=== PATIENT | female | born 1995 | race Hispanic/Latino ===

== ENCOUNTER 2021-07-28 14:09 | Emergency (ER) | payer OTHER, SELFPAY ==
--- OUTSIDE RECORDS SUMMARY | 2021-07-28 14:13 | XMS REPORT | Continuity of Care Document ---
:1995 Author Organization [facility] t Address [address] [place] [address] Care Team Providers Name Role Phone Pcp, Does Not Have A Primary Care Physician Janene Pichardo Attending Clinician Unavailable Reggie MCELROY Attending Clinician Unavailable Doctor Unassigned, Name Attending Clinician Unavailable Reggie Barone Attending Clinician Unavailable Reggie Rivas Attending Clinician Rai Rothman Attending Clinician RAI POPE Attending Clinician Unavailable Janene Henderson Attending Clinician Unavailable Physician, Primary or Family Admitting Clinician Unavailabl e Payers Payer Name Policy Type Policy Number Effective Date Expiration Date S ource Problems Condition Condition Condition Status Onset Resolution Last Treating Co mments Source Name Details Category Date Date Treatment Clinician Date Menstrual Menstrual Disease Active Uni vers problem problem 03-26 ity of 00:00: [place] [id number] Medical Branch BMI BMI Disease Active Univers 34.0-34.9, 34.0-34.9, 03-26 it y of adult adult 00:00: [address] Allergies, Adverse Reactions, Alerts Allergy Allergy Status Severity Reaction(s) Onset Inactive Treating Comm ents Source Name Type Date Date Clinician No Known DA Active U [facility] Allergie 3-27 Corp[facility] s 00:00: [facility] No Known DA Active U [facility] Allergie 2-13 Corp[facility] s 00:00: Regina [facility] No Known DA Active U 2012-07 [facility] Allergie 0-10 Corpus s 00:00: [address] NO KNOWN Drug Active Univers ALLERGIE Class ity of S [facility] Social History Social Habit Start Date Stop Date Quantity Comments Source Exposure to Not sure [facility] SARS-CoV-2 [place] [facility] (event) [facility] History SDOH University o f Alcohol Frequency [place] [facility] History SDOH University o f Alcohol Std [place] [facility] Drinks [facility] History SDOH University o f Alcohol Binge [place] [facility] Tobacco use and 2021-03-26 2021-03-26 Never used Universit y of exposure 00:00:00 00:00:00 [facility] Alcohol intake 2021-03-26 2021-03-26 Current drinker Unive rsity of 00:00:00 00:00:00 of alcohol [place] [facility] (finding) [facility] Alcohol Comment 2021-03-26 2021-03-26 social Universit y of 00:00:00 00:00:00 [facility] Sex Ass[birth year] Universit y of 00:00:00 00:00:00 [facility] Smoking Status Start Date Stop Date Source Unknown if ever smoked Universit y of [facility] Never smoker [facility] Medications Ordered Filled Start Stop Current Ordering Indication Dosage Frequency Signature Comments Components Source Medication Medication Date Date Medication? Clinician (SIG) Name Name BIOTIN ORAL Yes Take by Un carla 902 mouth. ity of 13:40: [address] BIOTIN ORAL Yes Take by Un carla 9- mouth. ity of 13:40: [address] BIOTIN ORAL Yes Take by Un carla 9-02 mouth. ity of 13:40: [address] BIOTIN ORAL Yes Take by Un crala 9-02 mouth. ity of 13:40: [place] [facility] BIOTIN ORAL Yes Take by Nikunj aguirre 03-26 mouth. ity of 08:40: [place] [facility] Immunizations Ordered Filled Immunization Date Status Comments [facility] e Immunization Name Name SARS-COV-2 COVID-19 2020-12-17 Completed Unive rsity of MODERNA VACCINE 00:00:00 [facility] SARS-COV-2 COVID-19 2020-12-17 Completed Unive rsity of MODERNA VACCINE 00:00:00 [facility] SARS-COV-2 COVID-19 2020-12-17 Completed Unive rsity of MODERNA VACCINE 00:00:00 [facility] SARS-COV-2 COVID-19 2020-12-17 Completed Unive rsity of MODERNA VACCINE 00:00:00 [facility] [place] [facility] SARS-COV-2 COVID-19 2020-12-17 Completed Unive rsity of MODERNA VACCINE 00:00:00 [facility] SARS-COV-2 COVID-19 2020-11-19 Completed Unive rsity of MODERNA VACCINE 00:00:00 [facility] SARS-COV-2 COVID-19 2020-11-19 Completed Unive rsity of MODERNA VACCINE 00:00:00 [facility] SARS-COV-2 COVID-19 2020-11-19 Completed Unive rsity of MODERNA VACCINE 00:00:00 [facility] SARS-COV-2 COVID-19 2020-11-19 Completed Unive rsity of MODERNA VACCINE 00:00:00 [facility] SARS-COV-2 COVID-19 2020-11-19 Completed Unive rsity of MODERNA VACCINE 00:00:00 [facility] Vital Signs Vital Name Observation Time Observation Value Comments Source Systolic blood 2021-03-26 13:33:00 116 mm[Hg] Univer sity of pressure [facility] Diastolic blood 2021-03-26 13:33:00 83 mm[Hg] Unive rsity of pressure [facility] Heart rate 2021-03-26 13:33:00 75 /min [facility] Body temperature 2021-03-26 13:33:00 36.33 Nidia Univ ersity of [facility] Respiratory rate 2021-03-26 13:33:00 18 /min [facility] ersity of [place] [facility] [place] Body height 2021-03-26 13:33:00 160 cm [facility] ty [facility] [place] [facility] [place] Body weight 2021-03-26 13:33:00 89.132 kg Universi ty of [place] [facility] BMI 2021-03-26 13:33:00 34.81 kg/m2 Universi ty of [facility] Systolic blood 2021-02-26 06:00:00 116 mm[Hg] Univer sity of pressure [facility] Diastolic blood 2021-02-26 06:00:00 80 mm[Hg] [facility] Heart rate 2021-02-26 06:00:00 78 /min Universi ty of [facility] Respiratory rate 2021-02-26 06:00:00 19 /min [facility] Oxygen saturation in 2021-02-26 06:00:00 99 /min [facility] Arterial blood by [facility] Pulse oximetry Branch Body temperature 2021-02-26 04:36:00 36.78 Nidia [facility] height 2021-02-26 04:36:00 160 cm [facility]i [facility] [place] [facility] [place] Body weight 2021-02-26 04:36:00 81.647 kg Universi ty [facility] BMI 2021-02-26 04:36:00 31.89 kg/m2 [facility] Procedures Procedure Date / Time Performed Performing Clinician Sour e EXTERNAL PROVIDER 2021-04-20 05:01:00 Doctor Unassigned, No [facility] RECORDS Name Medical Branch CONSENT/REFUSAL FOR 2021-03-26 13:05:17 Doctor Unassigned, No [facility] DIAGNOSIS AND Name Medical Branch TREATMENT ASSIGNMENT OF BENEFITS 2021-03-26 13:05:02 Doctor Unassigned, No [facility] Name Medical Branch MAGNESIUM 2021-02-26 04:40:00 Ellen Pope [facility] COMP. METABOLIC PANEL 2021-02-26 04:40:00 Ellen Pope [facility] ([id number]) Medical Branch CBC WITH DIFF 2021-02-26 04:40:00 Ellen Pope [facility] [facility] URINALYSIS 2021-02-26 04:40:00 Ellen Pope [place] [facility] POCT TEST 2021-02-26 04:39:00 Ellen Pope [facility] CONSENT/REFUSAL FOR 2021-02-26 04:18:31 [facility]igned, [facility] AND Name Medical Branch TREATMENT NOTICE OF PRIVACY 2021-02-26 04:17:53 Doctor Unassigned, No [facility] Name Medical Branch Encounters Start End Encounter Admission Attending Care Care Encounter Source Date/Time Date/Time Type Type Clinicians Facility Department ID 2021-04-13 Inpatient [facility] ER [id number] [facility] 08:30:00 [id number] [facility] 2020-10-18 Inpatient [facility] ER [id number] [facility] 16:34:00 [id number] [facility] 2020-09-06 Inpatient [facility] ER [id number] [facility] 09:41:00 [id number] [facility] 2020-06-06 Inpatient [facility] ER [id number] [facility] 09:17:00 [id number] [facility] 2020-04-01 Inpatient [facility] ER [id number] [facility] 18:30:00 [id number] [facility] 2020-01-25 Inpatient [facility] ER [id number] [facility] 10:11:00 [id number] [facility] 2019-12-13 [facility] [id number] 11:49:00 [id number] [facility] 2021-06-01 2021-06-01 Emergency EM Kotlik, [facility] ER [id number] [facility] 04:19:00 07:25:00 Shyann [id number] Corp[facility] 2021-06-01 2021-06-01 Emergency EM Kotlik, [facility] [id number] [facility] 04:19:00 07:25:00 Shyann 98 Carrieu [facility] 2021-05-26 2021-05-26 Outpatient Ibis [facility]Y [facility] [id number] Univers 13:30:00 13:30:00 WALESKA gonzalez [facility] 2021-05-26 2021-05-26 Outpatient Ibis [facility] [id number] Univers 13:30:00 13:30:00 WALESKA [id number] ity of [facility] 2021-04-20 2021-04-20 Orders Doctor JAMIE [id number] Univers 00:00:00 00:00:00 Only Unassigned, MANDA [id number] ity of [place] [facility] [id number] Sher as [id number] [address] 2021-04-13 2021-04-13 Emergency EM Lizabeth [facility] ER [id number] [facility] 08:30:00 11:03:00 , Jessika 06 [facility] 2021-03-26 2021-03-26 [facility] [id number] Univers 08:07:37 09:06:11 Visit Waleska Paredes CRESTER [id number] it y of [facility] [id number] Sher as MATERNAL [id number] Med ical & CHILD [address] [place] [address] 2021-03-26 2021-03-[address] [facility] [id number] Univers 08:00:00 08:00:00 WALESKA gonzalez [facility] 2021-03-26 2021-03-26 Orders Doctor JAMIE [id number] Univers 00:00:00 00:00:00 Only Unassigned, MNADA [id number] ity of [place] [facility] [id number] Sher as [phone] [facility] 009 [place] 2021-02-25 2021-02-26 Emergency Ellen Pope [facility] [id number] Univers 23:32:00 01:16:00 [facility] [id number] i ty [facility] 4.2.7.2.[place] [id number] [facility] 084 [place] 2021-02-25 2021-02-25 Emergency X Ellen POPE [facility] ERT [id number] Univers 23:32:00 23:32:00 ity of [facility] 2021-02-03 2021-02-03 Emergency EM Santiago [facility] ER [id number] [facility] 12:47:00 15:19:00 Trisha [id number] [facility] Results Test Description Test Time Test Comments Results Result Comments Source COVID 19 INHOUSE AG 2021-06-01 06:18:00 Test Item Value Reference Range Interpretation Comme nts COVID 19 INHOUSE AG (test NEGATIVE Negative " The Kay SARS Antigen TACO does not code = [id number]) differen tiate betweenSARS-CoV and SARS-CoV-2 " e Kay SARS Antigen TACO employs immunof luorescencetechnology in a sandwich nidia gn that is used with Kay todetect nucleocapsid protein from SARS-CoV and SA RS-CoV-2.This test allows for the detecti on of SARS-CoV [id number]. The test detects, but does not differ entiate,between the two viruses. " Resu lts are for the identification of OMDJ-PrJ-3oeeftmtjzvyo protein antigen . Antigen is generallydetect able in upper respiratory specimens durin g the acutephase of infection. Posi tive results indicate the presenceof zandra l antigens, but clinical correlation wit h patienthistory and other diagnosti c information is necessary todet ermine infection status. Positive result s do not rule outbacterial in fection or co-infection with other viru ses. Theagent detected may not be the definite cause of disease. " Nega tive results should be treated as pres umptive " This test has not been FDA cl eared or approved; the testhas been au thorized by FDA under an Emergency UseAu thorization (EUA) for use by laboratories certified undert CLIA that meet the r equirements to perform moderate,high o r waived complexity tests. This janeth t is authorized foruse at the Point of Ca re (POC), i.e., in patient careset tings operating under a CLIA Certificat e of Waiver,Certificate of Compliance, or Certificate of Accreditation Use [employer] NOW test: YES- US TRANSVAGINAL NON [id number] 09:44:00 [facility] : 1995 Sex: F Patient Name: LUCIAN FATIMA Unit No: [id number] EXAMS: CPT CODE: [id number] [place] [address] Site ID: [id number] Transvaginal and transabdominal pelvic US: CLINICAL HISTORY: Vaginal bleeding, left lower quadrant pain TECHNIQUE: Transabdominal and transvaginal pelvic ultrasound performed, with duplex scanning performed using B mode/grayscale imaging and spectral Doppler evaluation of arterial inflow and venous outflow to the ovaries FINDINGS: The uterus is normal in sizeand appearance and measures 7.3 x 3.7 x 4.4 cm. The endometrial stripe measures 14 mm. Myometrium appears homogeneous. The right ovary measures 2.5 x 2.2 cm. The left ovary measures 2.1 x 1.9 cm. Normal doppler flow to both ovaries is seen, without torsion. No abnormal adnexal masses are seen. No free fluid is seen. IMPRESSION: Unremarkable pelvic ultrasound at 0944 Reported and signed by: Van Freeman MD CC: Jessika Barone MD Technologist: [id number]; S erica Patel Trnscrbd D/ (0944) [email or web address] Orig Print D/T: S: 04/13/2021 (1001) Probe: [id number] [facility] Doctors NAME: LUCIAN FATIMA [address] PHYS: [place] [address] : 1995 AGE: 25 SEX: F LOC: MAIRA PHONE #: [phone] EXAM DATE: 04/13/2021 STATUS: REG ER FAX #: RAD NO: Page 1 Signed Report- US PELVIC [id number] 09:44:00 [facility] : 1995 Sex: F Patient Name: LUCIAN FATIMA Unit No: [id number] EXAMS: CPT CODE: [id number] US PELVIC COMPLETE 22812 Site ID: [id number] Transvaginal and transabdominal pelvic US: CLINICAL HISTORY: Vaginal bleeding, left lower quadrant pain TECHNIQUE: Transabdominal and transvaginal pelvic ultrasound performed, with duplex scanning performed using B mode/grayscale imaging and spectral Doppler evaluation of arterial inflow and venous outflow to the ovaries FINDINGS: The uterus is normal in sizeand appearance and measures 7.3 x 3.7 x 4.4 cm. The endometrial stripe measures 14 mm. Myometrium appears homogeneous. The right ovary measures 2.5 x 2.2 cm. The left ovary measures 2.1 x 1.9 cm. Normal doppler flow to both ovaries is seen, without torsion. No abnormal adnexal masses are seen. No free fluid is seen. IMPRESSION: Unremarkable pelvic ultrasound at 0944 Reported and signed by: Van Freeman MD CC: Jessika Barone MD Technologist: Liliane Patel Trnscrbd D/ (0944) [email or web address] Orig Print D/T: S: 04/13/2021 (1001) Probe: [facility] Doctors NAME: LUCIAN FATIMA [address] PHYS: SU.04 - Geovanyollie,Jessika N [facility] [place] [address] : 1995 AGE: 25 SEX: F LOC: MAIRA PHONE #: [phone] EXAM DATE: 04/13/2021 STATUS: REG ER FAX #: RAD NO: Page 1 Signed ReportHCG SERUM [id number] 09:21:00 Test Item Value Reference Range Interpretation Comments HCG SERUM QUAL NEGATIVE NEGATIVE False negativ es may occur (test code = when levels of hCGare below HCGQL) 10 mIU/ml. When is still suspec umagn, a new specimenshould be obtained after 48 hours and re-tested.If wa iting 48 hours is not me dically advisable,the t est result should be confi rmed using aquantitative h CG assay. COMPREHENSIVE METABOLIC [id number] 09:19:00 Test Item Value Reference Range Interpretation Comments SODIUM (test code = 138 MMOL/L 133-145 N NA) POTASSIUM (test code = 4.0 MMOL/L 3.6-5.2 N K) CHLORIDE (test code = 104 MMOL/L 100-108 N CL) CARBON DIOXIDE (test 29 MMOL/L 22-32 N code = CO2) GLUCOSE (test code = 100 MG/DL 65-99 H Results of this GLU) assay method ma y be falsely depress ed orelevated if patient is taki ng sulfasalazine. BLOOD UREA NITROGEN 12 MG/DL 6-20 N (test code = BUN) GLOMERULAR FILTRATION 92 71-165 N Report ing units: RATE (test code = GFR) mL/mi n/1.73m\\S\\2 (Modified MDRD Formula) CREATININE (test code 0.77 MG/DL 0.60-1.00 N = CREAT) TOTAL PROTEIN (test 6.9 G/DL 6.4-8.2 N code = PROT) ALBUMIN (test code = 3.6 G/DL 3.4-5.0 N ALB) GLOBULIN (test code = 3.3 G/DL 1.5-3.8 N GLOB) ALBUMIN/GLOBULIN RATIO 1.1 1.1-2.2 N (test code = A/G) CALCIUM (test code = 8.7 MG/DL 8.7-10.5 N CA) BILIRUBIN TOTAL (test 0.3 MG/DL 0.0-1.0 N code = BILT) SGOT/AST (test code = 41 Units/L 15-37 H Result s of this AST) assay method ma y be falsely depress ed orelevated if patient is taki ng sulfasalazine. SGPT/ALT (test code = 87 Units/L 30-65 H Result s of this ALT) assay method ma y be falsely depress ed orelevated if patient is taki ng sulfasalazine. ALKALINE PHOSPHATASE 100 Units/L 50-136 N TOTAL (test code = ALKP) CBC W/AUTO [id number] 09:07:00 Test Item Value Reference Range Interpretation Comments WHITE BLOOD CELL (test code = 6.89 x10 3/uL 4.80-10.80 N WBC) RED BLOOD CELL (test code = 3.98 x10 6/uL 4.2-5.4 L RBC) HEMOGLOBIN (test code = HGB) 11.5 G/DL 12.0-16.0 L HEMATOCRIT (test code = HCT) 34.7 % 37-47 L MEAN CELL VOLUME (test code = 87.2 FL 81-99 N MCV) MEAN CELL HGB (test code = MCH) 28.9 PG 27-31 N MEAN CELL HGB CONCENTRATION 33.1 G/DL 33-37 N (test code = MCHC) RED CELL DISTRIBUTION WIDTH 12.6 % 11.5-14.5 N (test code = RDW) PLATELET COUNT (test code = 315 x10 3/uL 150-450 N PLT) MEAN PLATELET VOLUME (test code 10.6 FL 7.4-10.4 H = MPV) NEUTROPHIL % (test code = NT%) 50.6 % 42-86 N IMMATURE GRANULOCYTE % (test 0.4 % 0.0-2.0 N code = IG%) LYMPHOCYTE % (test code = LY%) 40.5 % 24-44 N MONOCYTE % (test code = MO%) 6.4 % 0.0-4.0 H EOSINOPHIL % (test code = EO%) 1.7 % 0.0-2.7 N BASOPHIL % (test code = BA%) 0.4 % 0.0-0.5 N NUCLEATED RBC % (test code = 0.0 % 0.0-0.0 N NRBC%) NEUTROPHIL # (test code = NT#) 3.48 x10 3/uL 1.8-7.7 N IMMATURE GRANULOCYTE # (test 0.03 x10 3/uL 0.00-0.03 N code = IG#) LYMPHOCYTE # (test code = LY#) 2.79 x10 3/uL 1.0-4.8 N MONOCYTE # (test code = MO#) 0.44 x10 3/uL 0.0-0.8 N EOSINOPHIL # (test code = EO#) 0.12 x10 3/uL 0.0-0.5 N BASOPHIL # (test code = BA#) 0.03 x10 3/uL 0.0-0.2 N NUCLEATED RBC # (test code = 0.0 X10 3/uL 0.0-0.2 N NRBC#) [id number] 05:23:10 Test Item Value Reference Range Interpretation Comments APPEARANCE (test code = Hazy Clear A 1348444245) COLOR (test code = Yellow Yellow 2312818099) PH (test code = 4.8-8.0 0300266162) SP GRAVITY (test code = 1.003-1.030 8917332169) GLU U QUAL (test code = Normal Normal 2178423428) BLOOD (test code = 2+ Negative A 7308715947) KETONES (test code = Negative Negative 6678227054) PROTEIN (test code = Negative Negative 2887-8) UROBILIN (test code = Normal Normal 5160851693) BILIRUBIN (test code = Negative Negative 4721297230) NITRITE (test code = Negative Negative 1914836109) LEUK JENNIFER (test code = Negative Negative 0810860260) RBC/HPF (test code = >182 See_Comment H [Autom ated message] 8694352331) The system [employer] generated this result transmitted ref erence range: 0 - 3 HP F. The reference range was not used to int erpret this result as normal/abnormal . WBC/HPF (test code = See_Comment [Autom ated message] 0112981061) The system [employer] generated this result transmitted ref erence range: 0 - 5 HP F. The reference range was not used to int erpret this result as normal/abnormal . BACTERIA (test code = Few Negative A 1183183249) MUCOUS (test code = Slight Negative LPF A 4064273931) AMORPHOUS (test code = Rare Rare HPF 9791146191) SQ EPITH (test code = HPF 0344105200) TRANS EPI (test code = <1 See_Comment [Aut omated message] 0114901596) The system [employer] generated this result transmitted ref erence range: <=1 HPF. The reference range was not used to int erpret this result as normal/abnormal . Lab Interpretation (test Abnormal code = 14000-1) [facility] WITH [id number] 05:18:05 Test Item Value Reference Range Interpretation Comments WBC (test code = See_Comment [Automated 5790-2) message] The sy stem which generated this result transmitted reference range : 4.30 - 11.10 10*3/?L. The reference range was not used to interpret this result as normal/abnormal . RBC (test code = See_Comment [Automated 819-8) message] The sy stem which generated this result transmitted reference range : 3.93 - 5.25 10*6/?L. The reference range was not used to interpret this result as normal/abnormal . HGB (test code = 13.2 g/dL 11.6-15.0 718-7) HCT (test code = 38.4 % 35.7-45.2 4544-3) MCV (test code = 84.4 fL 80.6-95.5 787-2) MCH (test code = 29.0 pg 25.9-32.8 785-6) MCHC (test code = 34.4 g/dL 31.6-35.1 786-4) RDW-SD (test code = 36.6 fL 39.0-49.9 L 76081-1) RDW-CV (test code = 12.3 % 12.0-15.5 788-0) PLT (test code = See_Comment [Automated 777-3) message] The sy stem which generated this result transmitted reference range : 166 - 358 10*3/ ?L. The reference r jenise was not used to interpret this result as normal/abnormal . MPV (test code = 11.0 fL 9.5-12.9 42121-6) NRBC/100 WBC (test See_Comment [Automat ed code = 9020929074) message] The system which generated this result transmitted reference range : 0.0 - 10.0 /100 WBCs. The refer ence range was not u sed to interpret th is result as normal/abnormal . NRBC x10^3 (test code <0.01 See_Comment [Auto mated = 4385753631) message] The s ystem which generated this result transmitted reference range : 10*3/?L. The reference range was not used to interpret this result as normal/abnormal . GRAN MAT (NEUT) % 58.5 % (test code = 770-8) IMM GRAN % (test code 0.70 % = 4679564401) LYMPH % (test code = 32.2 % 736-9) MONO % (test code = 6.7 % 5905-5) EOS % (test code = 1.5 % 713-8) BASO % (test code = 0.4 % 706-2) GRAN MAT x10^3(ANC) 6.06 10*3/uL 1.88-7.09 (test code = 7521666451) IMM GRAN x10^3 (test 0.07 10*3/uL 0.00-0.06 H code = 9651671596) LYMPH x10^3 (test code 3.33 10*3/uL 1.32-3.29 H = 731-0) MONO x10^3 (test code 0.69 10*3/uL 0.33-0.92 = 742-7) EOS x10^3 (test code = 0.16 10*3/uL 0.03-0.39 711-2) BASO x10^3 (test code 0.04 10*3/uL 0.01-0.07 = 704-7) Lab Interpretation Abnormal (test code = 27098-5) [facility]. METABOLIC PANEL ([id number])2021-02-26 05:12:37 Test Item Value Reference Range Interpretation Comments NA (test code = 140 mmol/L 135-145 4954447167) K (test code = 4.0 mmol/L 3.5-5.0 2175311264) CL (test code = 106 mmol/L 98-108 9615588146) CO2 TOTAL (test code = 28 mmol/L 23-31 2133636077) AGAP (test code = 2-16 2482349113) BUN (test code = 15 mg/dL 7-23 6515082773) GLUCOSE (test code = 89 mg/dL 70-110 6521138091) CREATININE (test code = 0.60 mg/dL 0.50-1.04 8039298276) TOTAL BILI (test code = 0.3 mg/dL 0.1-1.8 6943145814) CALCIUM (test code = 9.4 mg/dL 8.6-10.6 4687242109) T PROTEIN (test code = 7.5 g/dL 6.3-8.2 4976848485) ALBUMIN (test code = 4.4 g/dL 3.5-5.0 0368370804) ALK PHOS (test code = 105 U/L 34-122 8127927777) ALTv (test code = 65 U/L 5-35 H 1742-6) AST(SGOT) (test code = 44 U/L 13-40 H 1644274648) eGFR (test code = mL/min/1.73m2 7332353130) ANTON (test code = ANTON) Association of Glomerular Filtration Rate (GFR) and Staging of Kidney Disease* + --+ --+ ------+| GFR (mL/min/1.73 m2) ?| With Kidney Damage ?| ?Without Kidney Damage+ --------+ --------+ +| ?>90 ?| ?Stage one ?| ? Normal ?+ ---+ ---+ -------+| ?60-89 ?| ?Stage two ?| ? Decreased GFR ? + --+ --+ ------+| ?30-59 ?| ?Stage three ?| ? Stage three ? + --+ --+ ------+| ?15-29 ?| ?Stage four ? | ? Stage four ?+ ---+ ---+ -------+| ?<15 (or dialysis) ? ?| ?Stage five ? | ? Stage five ?+ ---+ ---+ -------+ *Each stage assumes the associated GFR level has been in effect for at least three months. ?Stages 1 to 5, with or without kidney disease, indicate chronic kidney disease. Notes: Determination of stages one and two (with eGFR >59mL/min/1.73 m2) requires estimation of kidney damage for at least three months as defined by structural or functional abnormalities of the kidney, manifested by either:Pathological abnormalities or Markers of kidney damage (including abnormalities in the composition of the blood or urine or abnormalities in imaging tests). Lab Interpretation Abnormal (test code = 93159-1) [facility]12[facility]37 Test Item Value Reference Range Interpretation Comments MAGNESIUM (test code = 9660286966) 1.9 mg/dL 1.7-2.4 Lab Interpretation (test code = Normal 61299-5) [id number] 04:39:00 Test Item Value Reference Range Interpretation Comments POCT PREG (test code = 1605) negative On board controls acceptable with present C Line (test code = 3574) POCT PREG LOT # (test code = 3575) [id number] POCT PREG TEST DATE (test 07/24/2022 code = 3576) Lab Interpretation (test code = Normal 74482-3) [facility] [id number] 14:36:00 Test Item Value Reference Range Interpretation Comments SODIUM (test code = 143 MMOL/L 133-145 N NA) POTASSIUM (test code = 3.8 MMOL/L 3.6-5.2 N K) CHLORIDE (test code = 106 MMOL/L 100-108 N CL) CARBON DIOXIDE (test 28 MMOL/L 22-32 N code = CO2) GLUCOSE (test code = 91 MG/DL 65-99 N Results of this assay GLU) method may be f alsely depressed orele vated if patient is t aking sulfasalazine. BLOOD UREA NITROGEN 15 MG/DL 6-20 N (test code = BUN) GLOMERULAR FILTRATION 87 71-165 N Report ing units: RATE (test code = GFR) mL/mi n/1.73m\\S\\2 (Modified MDRD Formula) CREATININE (test code 0.81 MG/DL 0.60-1.00 N = CREAT) CALCIUM (test code = 8.8 MG/DL 8.7-10.5 N CA) HEPATIC FUNCTION [id number] 14:36:00 Test Item Value Reference Range Interpretation Comments TOTAL PROTEIN (test 7.8 G/DL 6.4-8.2 N code = PROT) ALBUMIN (test code = 3.8 G/DL 3.4-5.0 N ALB) GLOBULIN (test code = 4.0 G/DL 1.5-3.8 H GLOB) ALBUMIN/GLOBULIN RATIO 1.0 1.1-2.2 L (test code = A/G) BILIRUBIN TOTAL (test 0.3 MG/DL 0.0-1.0 N code = BILT) BILIRUBIN DIRECT (test 0.1 MG/DL 0.0-0.3 N code = BILD) BILIRUBIN INDIRECT 0.2 MG/DL 0.0-0.7 N (test code = BILIND) SGOT/AST (test code = 31 Units/L 15-37 N Result s of this AST) assay method ma y be falsely depress ed orelevated if patient is taki ng sulfasalazine. SGPT/ALT (test code = 69 Units/L 30-65 H Result s of this ALT) assay method ma y be falsely depress ed orelevated if patient is taki ng sulfasalazine. ALKALINE PHOSPHATASE 117 Units/L 50-136 N TOTAL (test code = ALKP) [id number] 14:36:00 Test Item Value Reference Range Interpretation Comments LIPASE (test code = LIP) 81 Units/L 73-393 N Coronavirus 2019 nCoV [id number] 14:29:00 Test Item Value Reference Range Interpretation Comments Coronavirus 2019 nCoV Negative Negative ID NOW COVID-19 assay Bedside (test code = perform ed on the ID NOW [id number]) Instrument ni rapid molecular in vi tro diagnostic test utilizing aniso thermal nucleic acid amplification t echnology intendedfor the qualitative det ection of nucleic acid fr om kuuKISW-IrO-2 v iral RNA in direct nasal , nasopharyngeal orthroat swabs and nasal , nasopharyngeal or throat swabseluted in viral transport media from individuals who aresuspected of COVID-19 by their health care provider. Resu lts are for the identif ication of SARS-CoV-2 R NA.For Use Under an Em ergency Use Authorizati on (EUA) Only Negative r esults do not preclude SA RS-CoV-2 infection andsh ould not be used as the sole basis for patie nt managementdecis ions. Negative result s must be combined with clinicalobserva tions, patient history , and epidemiological informati on. UA RFLX MICROSCOPIC [id number] 14:22:00 Test Item Value Reference Range Interpretation Comments UA COLOR (test code = COLU) Light-Yellow YELLOW UA APPEARANCE (test code = CLEAR CLEAR APPU) UA GLUCOSE DIPSTICK (test NORMAL mg/dL NEGATIVE code = DGLUU) UA BILIRUBIN DIPSTICK (test NEGATIVE NEGATIVE code = BILU) UA KETONE DIPSTICK (test NEGATIVE mg/dL NEGATIVE code = KETU) UA SPECIFIC GRAVITY (test 1.030 1.001-1.035 N code = SGU) UA BLOOD DIPSTICK (test code 3+ NEGATIVE A = KEITH) UA PH DIPSTICK (test code = 6.5 5.5-7.0 N MARELY) UA PROTEIN DIPSTICK (test NEGATIVE mg/dL NEGATIVE code = PROU) UA UROBILINOGEN DIPSTICK 2.0 mg/dL NORMAL (test code = URO) UA NITRITE DIPSTICK (test NEGATIVE NEGATIVE code = ANDREA) UA LEUKOCYTE ESTERASE 250 NEGATIVE A DIPSTICK (test code = LEUU) UA COMMENT (test code = VOLUME 10-12 ML COMU) URINE SPECIMEN DESCRIPTION Clean Catch (test code = UASPEC) UA WBC (test code = WBCU) < 10 #/HPF 0-10 UA SQUAMOUS CELLS (test code 61 - 80 #/LPF <100 A = SQU) UA CULTURE NEEDED? (test Criteria not met code = UACULT) Indication for culture: Flank PainURINE SOURCE: Clean CatchUA MICROSCOPIC 2021-02-03 14:22:00 Test Item Value Reference Range Interpretation Comments UA RBC (test code = RBCU) 0-2 #/HPF NONE SEEN UA BACTERIA (test code = BACU) Trace HPF NONE SEEN UA MUCUS (test code = MUCU) RARE #/lpf NONE SEEN Indication for culture: Flank PainURINE SOURCE: Clean CatchUA RFLX MICROSCOPIC [id number] 14:15:00 Test Item Value Reference Range Interpretation Comments UA COLOR (test code = COLU) Light-Yellow YELLOW UA APPEARANCE (test code = CLEAR CLEAR APPU) UA GLUCOSE DIPSTICK (test NORMAL mg/dL NEGATIVE code = DGLUU) UA BILIRUBIN DIPSTICK (test NEGATIVE NEGATIVE code = BILU) UA KETONE DIPSTICK (test code NEGATIVE mg/dL NEGATIVE = KETU) UA SPECIFIC GRAVITY (test 1.030 1.001-1.035 N code = SGU) UA BLOOD DIPSTICK (test code 3+ NEGATIVE A = KEITH) UA PH DIPSTICK (test code = 6.5 5.5-7.0 N MARELY) UA PROTEIN DIPSTICK (test NEGATIVE mg/dL NEGATIVE code = PROU) UA UROBILINOGEN DIPSTICK 2.0 mg/dL NORMAL (test code = URO) UA NITRITE DIPSTICK (test NEGATIVE NEGATIVE code = ANDREA) UA LEUKOCYTE ESTERASE 250 NEGATIVE A DIPSTICK (test code = LEUU) UA COMMENT (test code = COMU) VOLUME 10-12 ML URINE SPECIMEN DESCRIPTION Clean Catch (test code = UASPEC) UA WBC (test code = WBCU) #/hpf <10 UA SQUAMOUS CELLS (test code #/lpf <100 = SQU) UA CULTURE NEEDED? (test code = UACULT) Indication for culture: Flank PainURINE SOURCE: Clean CatchUA MICROSCOPIC 2021-02-03 14:15:00 Test Item Value Reference Range Interpretation Comments UA RBC (test code = RBCU) #/hpf NONE SEEN Indication for culture: Flank PainURINE SOURCE: Clean CatchUA RFLX MICROSCOPIC [id number] 14:15:00 Test Item Value Reference Range Interpretation Comments UA COLOR (test code = COLU) Light-Yellow YELLOW UA APPEARANCE (test code = CLEAR CLEAR APPU) UA GLUCOSE DIPSTICK (test NORMAL mg/dL NEGATIVE code = DGLUU) UA BILIRUBIN DIPSTICK (test NEGATIVE NEGATIVE code = BILU) UA KETONE DIPSTICK (test code NEGATIVE mg/dL NEGATIVE = KETU) UA SPECIFIC GRAVITY (test 1.030 1.001-1.035 N code = SGU) UA BLOOD DIPSTICK (test code 3+ NEGATIVE A = KEITH) UA PH DIPSTICK (test code = 6.5 5.5-7.0 N MARELY) UA PROTEIN DIPSTICK (test NEGATIVE mg/dL NEGATIVE code = PROU) UA UROBILINOGEN DIPSTICK 2.0 mg/dL NORMAL (test code = URO) UA NITRITE DIPSTICK (test NEGATIVE NEGATIVE code = ANDREA) UA LEUKOCYTE ESTERASE 250 NEGATIVE A DIPSTICK (test code = LEUU) UA COMMENT (test code = COMU) VOLUME 10-12 ML URINE SPECIMEN DESCRIPTION Clean Catch (test code = UASPEC) UA WBC (test code = WBCU) #/hpf <10 UA SQUAMOUS CELLS (test code #/lpf <100 = SQU) UA CULTURE NEEDED? (test code = UACULT) Indication for culture: Flank PainURINE SOURCE: Clean CatchUA MICROSCOPIC 2021-02-03 14:15:00 Test Item Value Reference Range Interpretation Comments UA RBC (test code = RBCU) #/hpf NONE SEEN Indication for culture: Flank PainURINE SOURCE: Clean CatchCBC W/AUTO DIFF 2021-02-03 14:14:00 Test Item Value Reference Range Interpretation Comments WHITE BLOOD CELL (test code = 10.45 x10 3/uL 4.80-10.80 N WBC) RED BLOOD CELL (test code = 5.09 x10 6/uL 4.2-5.4 N RBC) HEMOGLOBIN (test code = HGB) 15.0 G/DL 12.0-16.0 N HEMATOCRIT (test code = HCT) 43.7 % 37-47 N MEAN CELL VOLUME (test code = 85.9 FL 81-99 N MCV) MEAN CELL HGB (test code = 29.5 PG 27-31 N MCH) MEAN CELL HGB CONCENTRATION 34.3 G/DL 33-37 N (test code = MCHC) RED CELL DISTRIBUTION WIDTH 12.2 % 11.5-14.5 N (test code = RDW) PLATELET COUNT (test code = 335 x10 3/uL 150-450 N PLT) MEAN PLATELET VOLUME (test 10.4 FL 7.4-10.4 N code = MPV) NEUTROPHIL % (test code = NT%) 62.0 % 42-86 N IMMATURE GRANULOCYTE % (test 0.5 % 0.0-2.0 N code = IG%) LYMPHOCYTE % (test code = LY%) 30.6 % 24-44 N MONOCYTE % (test code = MO%) 5.4 % 0.0-4.0 H EOSINOPHIL % (test code = EO%) 1.1 % 0.0-2.7 N BASOPHIL % (test code = BA%) 0.4 % 0.0-0.5 N NUCLEATED RBC % (test code = 0.0 % 0.0-0.0 N NRBC%) NEUTROPHIL # (test code = NT#) 6.48 x10 3/uL 1.8-7.7 N IMMATURE GRANULOCYTE # (test 0.05 x10 3/uL 0.00-0.03 H code = IG#) LYMPHOCYTE # (test code = LY#) 3.20 x10 3/uL 1.0-4.8 N MONOCYTE # (test code = MO#) 0.56 x10 3/uL 0.0-0.8 N EOSINOPHIL # (test code = EO#) 0.12 x10 3/uL 0.0-0.5 N BASOPHIL # (test code = BA#) 0.04 x10 3/uL 0.0-0.2 N NUCLEATED RBC # (test code = 0.0 X10 3/uL 0.0-0.2 N NRBC#) UR HCG [id number] 14:11:00 Test Item Value Reference Range Interpretation Comments UR HCG QUAL (test NEGATIVE NEGATIVE False nega tives may occur code = HCGQLU) when levels o f hCGare below 20 mIU/ml. When is still suspec umang, a new specimenshould be obtained after 48 hours and re-tested.If wa iting 48 hours is not me dically advisable,the t est result should be confi rmed using aquantitative h CG assay. Covid 19 InHouse [id number] 10:40:00 Test Item Value Reference Range Interpretation Comments Covid 19 Negative Negative A negative resu lt does not InHouse NTX preclude the SA RS-COV-2 (test code = viralinfection and should not be [id number]) used as the so le basis forpatient jase gement decisions. Negative result s must becombined with clinical o bservations, patient history , andepidemiologi gibran information. Viral levels in clinicalsamples below the detec tion limit of the assay could narinder d tonegative results. This t est was performed using the [employer] SmartTM COVID-19 PCRassay. This test was developed and i ts performancechar acteristics were determined by [facility]. Thi s test has notbeen FDA walter ared or approved. This test is au thorized by theFDA under Em ergency Use Authorization(E UA). The EUA willremain in e ffect unless it is terminated o r revoked by FDA . Testing su eters have not been validated for screeningasympt omatic patients. This test was v alidated according to e FDA's guidancedocumen t "Policy for Diagnostics janeth ting in LaboratoriesCer tified to Perform High Complexity Testing under CLIA". First test? NoEmployed in Healthcare? YesSymptomatic as defined by CDC? YesDate of Symptom Onset: [id number] due to COVID? NoIn ICU due to COVID? NoResident in a congregate care setting? No? NoAge at collection: YCBC W/AUTO [id number] 11:35:00 Test Item Value Reference Range Interpretation Comments WHITE BLOOD CELL (test code = 8.81 x10 3/uL 4.80-10.80 N WBC) RED BLOOD CELL (test code = 5.49 x10 6/uL 4.2-5.4 H RBC) HEMOGLOBIN (test code = HGB) 15.2 G/DL 12.0-16.0 N HEMATOCRIT (test code = HCT) 46.6 % 37-47 N MEAN CELL VOLUME (test code = 84.9 FL 81-99 N MCV) MEAN CELL HGB (test code = MCH) 27.7 PG 27-31 N MEAN CELL HGB CONCENTRATION 32.6 G/DL 33-37 L (test code = MCHC) RED CELL DISTRIBUTION WIDTH 13.1 % 11.5-14.5 N (test code = RDW) PLATELET COUNT (test code = 364 x10 3/uL 150-450 N PLT) MEAN PLATELET VOLUME (test code 10.9 FL 7.4-10.4 H = MPV) NEUTROPHIL % (test code = NT%) 60.9 % 42-86 N IMMATURE GRANULOCYTE % (test 0.2 % 0.0-2.0 N code = IG%) LYMPHOCYTE % (test code = LY%) 32.5 % 24-44 N MONOCYTE % (test code = MO%) 5.2 % 0.0-4.0 H EOSINOPHIL % (test code = EO%) 1.0 % 0.0-2.7 N BASOPHIL % (test code = BA%) 0.2 % 0.0-0.5 N NUCLEATED RBC % (test code = 0.0 % 0.0-0.0 N NRBC%) NEUTROPHIL # (test code = NT#) 5.36 x10 3/uL 1.8-7.7 N IMMATURE GRANULOCYTE # (test 0.02 x10 3/uL 0.00-0.03 N code = IG#) LYMPHOCYTE # (test code = LY#) 2.86 x10 3/uL 1.0-4.8 N MONOCYTE # (test code = MO#) 0.46 x10 3/uL 0.0-0.8 N EOSINOPHIL # (test code = EO#) 0.09 x10 3/uL 0.0-0.5 N BASOPHIL # (test code = BA#) 0.02 x10 3/uL 0.0-0.2 N NUCLEATED RBC # (test code = 0.0 X10 3/uL 0.0-0.2 N NRBC#) COMPREHENSIVE METABOLIC [id number] 11:30:00 Test Item Value Reference Range Interpretation Comments SODIUM (test code = 141 MMOL/L 133-145 N NA) POTASSIUM (test code = 4.1 MMOL/L 3.6-5.2 N K) CHLORIDE (test code = 105 MMOL/L 100-108 N CL) CARBON DIOXIDE (test 26 MMOL/L 22-32 N code = CO2) GLUCOSE (test code = 87 MG/DL 65-99 N Results of this GLU) assay method ma y be falsely depress ed orelevated if patient is taki ng sulfasalazine. BLOOD UREA NITROGEN 10 MG/DL 6-20 N (test code = BUN) GLOMERULAR FILTRATION 109 71-165 N Report ing units: RATE (test code = GFR) mL/mi n/1.73m\\S\\2 (Modified MDRD Formula) CREATININE (test code 0.67 MG/DL 0.60-1.00 N = CREAT) TOTAL PROTEIN (test 7.7 G/DL 6.4-8.2 N code = PROT) ALBUMIN (test code = 4.0 G/DL 3.4-5.0 N ALB) GLOBULIN (test code = 3.7 G/DL 1.5-3.8 N GLOB) ALBUMIN/GLOBULIN RATIO 1.1 1.1-2.2 N (test code = A/G) CALCIUM (test code = 8.5 MG/DL 8.7-10.5 L CA) BILIRUBIN TOTAL (test 0.4 MG/DL 0.0-1.0 N code = BILT) SGOT/AST (test code = 28 Units/L 15-37 N Result s of this AST) assay method ma y be falsely depress ed orelevated if patient is taki ng sulfasalazine. SGPT/ALT (test code = 54 Units/L 30-65 N Result s of this ALT) assay method ma y be falsely depress ed orelevated if patient is taki ng sulfasalazine. ALKALINE PHOSPHATASE 101 Units/L 50-136 N TOTAL (test code = ALKP) HCG SERUM [id number] 11:27:00 Test Item Value Reference Range Interpretation Comments HCG SERUM QUAL NEGATIVE NEGATIVE False negativ es may occur (test code = when levels of hCGare below HCGQL) 10 mIU/ml. When is still suspec umang, a new specimenshould be obtained after 48 hours and re-tested.If wa iting 48 hours is not me dically advisable,the t est result should be confi rmed using aquantitative h CG assay. UA RFLX [id number] 11:19:00 Test Item Value Reference Range Interpretation Comments UA COLOR (test code = COLU) Light-Yellow YELLOW UA APPEARANCE (test code = CLEAR CLEAR APPU) UA GLUCOSE DIPSTICK (test NORMAL mg/dL NEGATIVE code = DGLUU) UA BILIRUBIN DIPSTICK (test NEGATIVE NEGATIVE code = BILU) UA KETONE DIPSTICK (test code NEGATIVE mg/dL NEGATIVE = KETU) UA SPECIFIC GRAVITY (test 1.022 1.001-1.035 N code = SGU) UA BLOOD DIPSTICK (test code NEGATIVE NEGATIVE = KEITH) UA PH DIPSTICK (test code = 6.0 5.5-7.0 N MARELY) UA PROTEIN DIPSTICK (test NEGATIVE mg/dL NEGATIVE code = PROU) UA UROBILINOGEN DIPSTICK NORMAL mg/dL NORMAL (test code = URO) UA NITRITE DIPSTICK (test NEGATIVE NEGATIVE code = ANDREA) UA LEUKOCYTE ESTERASE 2+ NEGATIVE A DIPSTICK (test code = LEUU) UA COMMENT (test code = COMU) VOLUME 10-12 ML URINE SPECIMEN DESCRIPTION Clean Catch (test code = UASPEC) UA [id number] 11:19:00 Test Item Value Reference Range Interpretation Comments UA WBC (test code = WBCU) < 10 #/HPF 0-10 UA RBC (test code = RBCU) 0-2 #/HPF NONE SEEN UA SQUAMOUS CELLS (test code > 100 #/LPF <100 A = SQU) UA MUCUS (test code = MUCU) RARE #/lpf NONE SEEN UA CULTURE NEEDED? (test Criteria not met code = UACULT) UA RFLX [id number] 11:17:00 Test Item Value Reference Range Interpretation Comments UA COLOR (test code = COLU) Light-Yellow YELLOW UA APPEARANCE (test code = CLEAR CLEAR APPU) UA GLUCOSE DIPSTICK (test NORMAL mg/dL NEGATIVE code = DGLUU) UA BILIRUBIN DIPSTICK (test NEGATIVE NEGATIVE code = BILU) UA KETONE DIPSTICK (test code NEGATIVE mg/dL NEGATIVE = KETU) UA SPECIFIC GRAVITY (test 1.022 1.001-1.035 N code = SGU) UA BLOOD DIPSTICK (test code NEGATIVE NEGATIVE = KEITH) UA PH DIPSTICK (test code = 6.0 5.5-7.0 N MARELY) UA PROTEIN DIPSTICK (test NEGATIVE mg/dL NEGATIVE code = PROU) UA UROBILINOGEN DIPSTICK NORMAL mg/dL NORMAL (test code = URO) UA NITRITE DIPSTICK (test NEGATIVE NEGATIVE code = ANDREA) UA LEUKOCYTE ESTERASE 2+ NEGATIVE A DIPSTICK (test code = LEUU) UA COMMENT (test code = COMU) VOLUME 10-12 ML URINE SPECIMEN DESCRIPTION Clean Catch (test code = UASPEC) UA [id number] 11:17:00 Test Item Value Reference Range Interpretation Comments UA WBC (test code = WBCU) #/hpf <10 UA RBC (test code = RBCU) #/hpf NONE SEEN UA SQUAMOUS CELLS (test code = SQU) #/lpf <100 UA CULTURE NEEDED? (test code = UACULT) UA RFLX [id number] 11:17:00 Test Item Value Reference Range Interpretation Comments UA COLOR (test code = COLU) Light-Yellow YELLOW UA APPEARANCE (test code = CLEAR CLEAR APPU) UA GLUCOSE DIPSTICK (test NORMAL mg/dL NEGATIVE code = DGLUU) UA BILIRUBIN DIPSTICK (test NEGATIVE NEGATIVE code = BILU) UA KETONE DIPSTICK (test code NEGATIVE mg/dL NEGATIVE = KETU) UA SPECIFIC GRAVITY (test 1.022 1.001-1.035 N code = SGU) UA BLOOD DIPSTICK (test code NEGATIVE NEGATIVE = KEITH) UA PH DIPSTICK (test code = 6.0 5.5-7.0 N MARELY) UA PROTEIN DIPSTICK (test NEGATIVE mg/dL NEGATIVE code = PROU) UA UROBILINOGEN DIPSTICK NORMAL mg/dL NORMAL (test code = URO) UA NITRITE DIPSTICK (test NEGATIVE NEGATIVE code = ANDREA) UA LEUKOCYTE ESTERASE 2+ NEGATIVE A DIPSTICK (test code = LEUU) UA COMMENT (test code = COMU) VOLUME 10-12 ML URINE SPECIMEN DESCRIPTION Clean Catch (test code = UASPEC) UA [id number] 11:17:00 Test Item Value Reference Range Interpretation Comments UA WBC (test code = WBCU) #/hpf <10 UA RBC (test code = RBCU) #/hpf NONE SEEN UA SQUAMOUS CELLS (test code = SQU) #/lpf <100 UA CULTURE NEEDED? (test code = UACULT) - XR ABDOMEN 1 [id number] 11:04:00 [facility] 1995 Sex: F Patient Name: LUCIAN FATIMA Unit No: [id number] EXAMS: CPT CODE: [id number] XR ABDOMEN 1 V [id number] Reason: LLQ PAIN - XRABDOMEN 1 V 06/06/2020 10:06 AM Left lower quadrant abdominal pain A supine abdomen shows no abnormal masses or suspicious calcifications. The regional bowel gas pattern is normal. Soft tissue shadows are unremarkable. The bones are unremarkable. IMPRESSION: Negative abdomen. Electronically Signed by Trent Caruso MD on06/06/2020 at 1104 Reported and signed by: Trent Caruso MD CC: Joshua James DO; Jan Saxena NP Technologist: Bren Singh (Schroeder) RT Trscrpt Dt/ (1104)[id number] Orig Print D/T: S: 06/06/2020 (7280) [facility] NAME: LUCIAN FATIMA [address] PHYS: [email or web address] [place] [address] : 1995 AGE: 24 SEX: F LOC: MAIRA PHONE #: [phone] EXAMDATE: 06/06/2020 STATUS: REG ER FAX #: RAD NO: DC Dt: PAGE 1 Signed ReportNovel Coronavirus 2019 [id number] 00:35:00 Test Item Value Reference Range Interpretation Comments Novel Coronavirus Negative Negative [employer] [facility] COVID-19 test 2019 nCoV (test code is a qu alitative test = COVID19) and does notpro vide quantitative va lue of the organism Results from this test must be correlated with theclinical his tory, epidemiological data and other dataavail able to the clinician e valuation the patient Interference fr om substances that were not evaluated could lead to erroneous resul ts A negative result does not exclude the pos sibility ofCOVID-19 infe ction. False negative test results may occ urdue to the presence of inhibitors. Te st results may als o beaffected by l evels of organism in the specimen that arebelow t hreshold detection for t he test. Negative result sshould not be used as a sole basis for diagn osis, treatment,or ot her patient managem ent decisions. UA RFLX [id number] 12:38:00 Test Item Value Reference Range Interpretation Comments UA COLOR (test code = COLU) Light-Yellow YELLOW UA APPEARANCE (test code = CLEAR CLEAR APPU) UA GLUCOSE DIPSTICK (test NORMAL mg/dL NEGATIVE code = DGLUU) UA BILIRUBIN DIPSTICK (test NEGATIVE NEGATIVE code = BILU) UA KETONE DIPSTICK (test code NEGATIVE mg/dL NEGATIVE = KETU) UA SPECIFIC GRAVITY (test 1.019 1.001-1.035 N code = SGU) UA BLOOD DIPSTICK (test code NEGATIVE NEGATIVE = KEITH) UA PH DIPSTICK (test code = 5.5 5.5-7.0 N MARELY) UA PROTEIN DIPSTICK (test NEGATIVE mg/dL NEGATIVE code = PROU) UA UROBILINOGEN DIPSTICK NORMAL mg/dL NORMAL (test code = URO) UA NITRITE DIPSTICK (test NEGATIVE NEGATIVE code = ANDREA) UA LEUKOCYTE ESTERASE NEGATIVE NEGATIVE DIPSTICK (test code = LEUU) UA COMMENT (test code = COMU) VOLUME 10-12 ML URINE SPECIMEN DESCRIPTION Clean Catch (test code = UASPEC) COMPREHENSIVE METABOLIC [id number] 12:34:00 Test Item Value Reference Range Interpretation Comments SODIUM (test code = 140 MMOL/L 133-145 N NA) POTASSIUM (test code = 4.2 MMOL/L 3.6-5.2 N K) CHLORIDE (test code = 105 MMOL/L 100-108 N CL) CARBON DIOXIDE (test 28 MMOL/L 22-32 N code = CO2) GLUCOSE (test code = 92 MG/DL 65-99 N Results of this assay GLU) method may be f alsely depressed orele vated if patient is t aking sulfasalazine. BLOOD UREA NITROGEN 10 MG/DL 6-20 N (test code = BUN) GLOMERULAR FILTRATION 85 71-165 N Report ing units: RATE (test code = GFR) mL/mi n/1.73m\\S\\2 (Modified MDRD Formula) CREATININE (test code 0.83 MG/DL 0.60-1.00 N = CREAT) TOTAL PROTEIN (test 6.8 G/DL 6.4-8.2 N code = PROT) ALBUMIN (test code = 3.5 G/DL 3.4-5.0 N ALB) GLOBULIN (test code = 3.3 G/DL 1.5-3.8 N GLOB) ALBUMIN/GLOBULIN RATIO 1.1 1.1-2.2 N (test code = A/G) CALCIUM (test code = 8.8 MG/DL 8.7-10.5 N CA) BILIRUBIN TOTAL (test 0.3 MG/DL 0.0-1.0 N code = BILT) SGOT/AST (test code = 22 Units/L 15-37 N Result s of this assay AST) method may be f alsely depressed orele vated if patient is t aking sulfasalazine. SGPT/ALT (test code = 38 Units/L 30-65 N Result s of this assay ALT) method may be f alsely depressed orele vated if patient is t aking sulfasalazine. ALKALINE PHOSPHATASE 83 Units/L 50-136 N TOTAL (test code = ALKP) [id number] 12:34:00 Test Item Value Reference Range Interpretation Comments LIPASE (test code = LIP) 65 Units/L 73-393 L HCG SERUM [id number] 12:29:00 Test Item Value Reference Range Interpretation Comments HCG SERUM QUAL NEGATIVE NEGATIVE False negativ es may occur (test code = when levels of hCGare below HCGQL) 10 mIU/ml. When is still suspec umang, a new specimenshould be obtained after 48 hours and re-tested.If wa iting 48 hours is not me dically advisable,the t est result should be confi rmed using aquantitative h CG assay. CBC W/AUTO [id number] 12:23:00 Test Item Value Reference Range Interpretation Comments WHITE BLOOD CELL (test code = 10.12 x10 3/uL 4.80-10.80 N WBC) RED BLOOD CELL (test code = 5.30 x10 6/uL 4.2-5.4 N RBC) HEMOGLOBIN (test code = HGB) 14.5 G/DL 12.0-16.0 N HEMATOCRIT (test code = HCT) 45.2 % 37-47 N MEAN CELL VOLUME (test code = 85.3 FL 81-99 N MCV) MEAN CELL HGB (test code = 27.4 PG 27-31 N MCH) MEAN CELL HGB CONCENTRATION 32.1 G/DL 33-37 L (test code = MCHC) RED CELL DISTRIBUTION WIDTH 13.3 % 11.5-14.5 N (test code = RDW) PLATELET COUNT (test code = 342 x10 3/uL 150-450 N PLT) MEAN PLATELET VOLUME (test 10.5 FL 7.4-10.4 H code = MPV) NEUTROPHIL % (test code = NT%) 56.3 % 42-86 N IMMATURE GRANULOCYTE % (test 0.6 % 0.0-2.0 N code = IG%) LYMPHOCYTE % (test code = LY%) 37.4 % 24-44 N MONOCYTE % (test code = MO%) 4.6 % 0.0-4.0 H EOSINOPHIL % (test code = EO%) 0.8 % 0.0-2.7 N BASOPHIL % (test code = BA%) 0.3 % 0.0-0.5 N NUCLEATED RBC % (test code = 0.0 % 0.0-0.0 N NRBC%) NEUTROPHIL # (test code = NT#) 5.70 x10 3/uL 1.8-7.7 N IMMATURE GRANULOCYTE # (test 0.06 x10 3/uL 0.00-0.03 H code = IG#) LYMPHOCYTE # (test code = LY#) 3.78 x10 3/uL 1.0-4.8 N MONOCYTE # (test code = MO#) 0.47 x10 3/uL 0.0-0.8 N EOSINOPHIL # (test code = EO#) 0.08 x10 3/uL 0.0-0.5 N BASOPHIL # (test code = BA#) 0.03 x10 3/uL 0.0-0.2 N NUCLEATED RBC # (test code = 0.0 X10 3/uL 0.0-0.2 N NRBC#) UA RFLX [id number] 00:42:00 Test Item Value Reference Range Interpretation Comments UA COLOR (test code = COLU) YELLOW YELLOW UA APPEARANCE (test code = CLEAR CLEAR APPU) UA GLUCOSE DIPSTICK (test NEGATIVE mg/dL NEGATIVE code = DGLUU) UA BILIRUBIN DIPSTICK (test NEGATIVE NEGATIVE code = BILU) UA KETONE DIPSTICK (test code NEGATIVE mg/dL NEGATIVE = KETU) UA SPECIFIC GRAVITY (test 1.020 1.001-1.035 N code = SGU) UA BLOOD DIPSTICK (test code NEGATIVE NEGATIVE = KEITH) UA PH DIPSTICK (test code = 6.0 5.5-7.0 N MARELY) UA PROTEIN DIPSTICK (test NEGATIVE mg/dL NEGATIVE code = PROU) UA UROBILINOGEN DIPSTICK 1.0 mg/dL NORMAL (test code = URO) UA NITRITE DIPSTICK (test NEGATIVE NEGATIVE code = ANDREA) UA LEUKOCYTE ESTERASE NEGATIVE NEGATIVE DIPSTICK (test code = LEUU) UA COMMENT (test code = COMU) VOLUME 10-12 ML URINE SPECIMEN DESCRIPTION Clean Catch (test code = UASPEC) UR HCG [id number] 00:27:00 Test Item Value Reference Range Interpretation Comments UR HCG QUAL (test NEGATIVE NEGATIVE False nega tives may occur code = HCGQLU) when levels o f hCGare below 20 mIU/ml. When is still suspec umang, a new specimenshould be obtained after 48 hours and re-tested.If wa iting 48 hours is not me dically advisable,the t est result should be confi rmed using aquantitative h CG assay.
[2021-07-28] MEDS ORDERED: ACETAMINOPHEN 500 MG TAB ONE (14:25)
[2021-07-28 15:50] LABS: SARS-COV-2 RT PCR NEGATIVE (NEGATIVE)
--- NOTE | 2021-07-28 15:56 | ER ---
Nurse's Notes [facility] Name: Leyla Vivas Age: 26 yrs Sex: Female : 1995 Arrival Date: 07/28/2021 Time: 14:12 Bed Waiting Private MD: Diagnosis: Influenza due to identified novel influenza A virus Presentation: 07/28 14:19 Chief complaint: Patient states: Fever, cough, sore throat, body aches, GONZALEZ, dizzy for 3 ll1 days. Coronavirus screen: Vaccine status: Patient reports receiving the 2nd dose of the covid vaccine. Client denies travel out of the [place] in the last 14 days. congestion, cough unrelated to allergies, fatigue, fever, headache, muscle pain, sore throat, Client presents with at least one sign or symptom that may indicate coronavirus-19. Standard/surgical mask placed on the client. Ebola Screen: Patient denies travel to an Ebola-affected area in the 21 days before illness onset. Initial Sepsis Screen: Does the patient meet any 2 criteria? HR > 90 bpm. No. Patient's initial sepsis screen is negative. Does the patient have a suspected source of infection? Yes: Productive cough/pneumonia. Risk Assessment: Do you want to hurt yourself or someone else? Patient reports no desire to harm self or others. Onset of symptoms was July 26, 2021. 14:19 Method Of Arrival: Ambulatory ll1 14:19 Acuity: BRAYAN 4 ll1 Triage Assessment: 14:22 General: Appears in no apparent distress. Behavior is calm, cooperative, appropriate ll1 for age. Pain: Complains of pain in throat Quality of pain is described as aching, Aggravated by eating, drinking. EENT: Nares are clear Throat is clear Reports nasal congestion. EENT: Reports pain when swallowing. Neuro: No deficits noted. Cardiovascular: No deficits noted. Respiratory: Reports cough that is Breath sounds are clear bilaterally. Musculoskeletal: Reports body aches. 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 - Social history:: Smoking status: Patient denies any tobacco usage or history of. Screenin:22 Abuse screen: Denies threats or abuse. Nutritional screening: No deficits noted. ll1 Tuberculosis screening: No symptoms or risk factors identified. Fall Risk Total Dia Fall Scale indicates No Risk (0-24 pts). Assessment: 15:22 Reassessment: No changes from previously documented assessment. Patient and/or family ll1 updated on plan of care and expected duration. Pain level reassessed. Patient is alert, oriented x 3, equal unlabored respirations, skin warm/dry/pink. 16:20 Reassessment: No changes from previously documented assessment. Patient and/or family ll1 updated on plan of care and expected duration. Pain level reassessed. Patient is alert, oriented x 3, equal unlabored respirations, skin warm/dry/pink. Respiratory: Airway is patent Respiratory effort is even, unlabored, Breath sounds are clear bilaterally. 16:27 EENT: Throat is reddened on right. ll1 Vital Signs: 14:19 BP 139 / 90; Pulse 120; Resp 17; Temp 102.1; Pulse Ox 97% on R/A; Weight 88.45 kg; ll1 Height 5 ft. 3 in. (160.02 cm); Pain 9/10; 16:27 BP 113 / 84; Pulse 96; Resp 18; Temp 98.0; Pulse Ox 97% ; ll1 14:19 Body Mass Index 34.54 (88.45 kg, 160.02 cm) ll1 ED Course: 14:12 Patient arrived in ED. ds1 14:21 Triage completed. ll1 14:21 Arm band placed on. ll1 14:22 Patient has correct armband on for positive identification. Cardiac monitoring not ll1 applicable on this patient. 14:23 Tania Sanchez FNP-C [facility]. kb 14:23 Sancho Cope MD is Attending Physician. kb 15:22 No provider procedures requiring assistance completed. Patient did not have IV access ll1 during this emergency room visit. Administered Medications: 14:26 Drug: Tylenol 1000 mg Route: PO; ll1 19:57 Follow up: Response: No adverse reaction ll1 Outcome: 15:55 Discharge ordered by . kb 16:27 Patient left the ED. ll1 16:27 Discharged to home ambulatory. ll1 16:27 Condition: stable 16:27 Discharge instructions given to patient, Instructed on discharge instructions, follow up and referral plans. medication usage, Demonstrated understanding of instructions, follow-up care, medications, Prescriptions given X 1. Signatures: Tania Sanchez FNP-C FNP-Shana Rodrigues ds1 Satinder Brandon RN RN ll1
--- NOTE | 2021-07-28 15:56 | EDPHYS ---
Physician Documentation [facility] Name: Leyla Vivas Age: 26 yrs Sex: Female : 1995 Arrival Date: 07/28/2021 Time: 14:12 Bed Waiting Private MD: ED Physician Sancho Cope HPI: 07/28 15:53 This 26 yrs old Female presents to ER via Ambulatory with complaints of Sore kb Throat, Fever, Cough. 15:53 The patient or guardian reports cough, that is intermittent, described as mild, flu kb symptoms, low-grade fever, myalgias. Onset: The symptoms/episode began/occurred 2 day(s) ago. Severity of symptoms: At their worst the symptoms were moderate, in the emergency department the symptoms are unchanged. Modifying factors: The symptoms are alleviated by nothing, the symptoms are aggravated by nothing. Associated signs and symptoms: Pertinent positives: fever, rhinorrhea, sore throat, Pertinent negatives: chest pain, diarrhea, ear ache, nausea, vomiting. The patient has not experienced similar symptoms in the past. The patient has not recently seen a physician. Pt reports fever, cough, sore throat, headaches, bodyaches for 2 days. 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 - Social history:: Smoking status: Patient denies any tobacco usage or history of. ROS: 15:54 Abdomen/GI: Negative for abdominal pain, nausea, vomiting, diarrhea, and constipation. kb 15:54 Constitutional: Positive for body aches, chills, fever, malaise. 15:54 ENT: Positive for sore throat. 15:54 Respiratory: Positive for cough, Negative for dyspnea on exertion, hemoptysis, orthopnea, pleurisy, shortness of breath, sputum production, wheezing. 15:54 Neuro: Positive for headache. 15:54 All other systems are negative. Exam: 15:54 Constitutional: This is a well developed, well nourished patient who is awake, alert, kb and in no acute distress. Head/Face: Normocephalic, atraumatic. ENT: Moist Mucous membranes Cardiovascular: Regular rate and rhythm with a normal S1 and S2. No gallops, murmurs, or rubs. No pulse deficits. Respiratory: Respirations even and unlabored. No increased work of breathing. Talking in full sentences Abdomen/GI: Soft, non-tender. No distention Skin: Warm, dry with normal turgor. Normal color. MS/ Extremity: Pulses equal, no cyanosis. Neurovascular intact. Full, normal range of motion. Neuro: Awake and alert, GCS 15, oriented to person, place, time, and situation. Moves all extremities. Normal gait. Psych: Awake, alert, with orientation to person, place and time. Behavior, mood, and affect are within normal limits. Vital Signs: 14:19 BP 139 / 90; Pulse 120; Resp 17; Temp 102.1; Pulse Ox 97% on R/A; Weight 88.45 kg; ll1 Height 5 ft. 3 in. (160.02 cm); Pain 9/10; 16:27 BP 113 / 84; Pulse 96; Resp 18; Temp 98.0; Pulse Ox 97% ; ll1 14:19 Body Mass Index 34.54 (88.45 kg, 160.02 cm) ll1 MDM: 14:27 Patient medically screened. kb 15:39 Data reviewed: vital signs, nurses notes. Data interpreted: Pulse oximetry: on room air kb is 97 %. Interpretation: normal. 15:53 Counseling: I had a detailed discussion with the patient and/or guardian regarding: the kb historical points, exam findings, and any diagnostic results supporting the discharge/admit diagnosis, lab results, the need for outpatient follow up, a family practitioner, to return to the emergency department if symptoms worsen or persist or if there are any questions or concerns that arise at home. 07/28 14:23 Order name: Group A Streptococcus Rapid Sc; Complete Time: 15:24 EDMS 07/28 14:27 Order name: COVID-19/FLU A+B (Document "Date of Onset" if Symptomatic) kb 07/28 14:27 Order name: COVID-19/FLU A+B; Complete Time: 15:53 EDMS 07/28 15:25 Order name: Throat Culture EDWI 07/28 15:55 Order name: Vital Signs; Complete Time: 19:58 kb Administered Medications: 14:26 Drug: Tylenol 1000 mg Route: PO; ll1 19:57 Follow up: Response: No adverse reaction ll1 Disposition: 17:49 Co-signature as Attending Physician, Sancho Cope MD I agree with the assessment and rn plan of care. Attestation: The patient's history, exam findings, diagnostics, and a summary of any interventions or procedures was reviewed in detail with Tania PATEL. Disposition Summary: 07/28/21 15:55 Discharge Ordered Location: Home kb Condition: Stable kb Diagnosis - Influenza due to identified novel influenza A virus kb Followup: kb - With: Emergency Department - When: As needed - Reason: Worsening of condition Followup: kb - With: Private Physician - When: 2 - 3 days - Reason: Recheck today's complaints, Continuance of care, Re-evaluation by your physician Discharge Instructions: - Discharge Summary Sheet kb - Influenza, Adult, [id number] kb Forms: - Medication Reconciliation Form kb - Thank You Letter kb - Antibiotic Education kb - Prescription Opioid Use kb Prescriptions: - Tamiflu 75 mg Oral Capsule - take 1 tablet by ORAL route every 12 hours for 5 days; 10 tablet; Refills: 0, kb Product Selection Permitted Signatures: Dispatcher [employer] EDTania De, JORGE PHELANP-CkSancho Morataya MD MD rn Lewis, Lynsay, RN RN ll1
[2021-07-28 16:31] VITALS: O2SAT 97
[2021-07-28 16:33] VITALS: BP 113/84; TEMP 98
== END 2021-07-28 16:27 | disposition home or self-care (01) ==
LOC: ER 14:09
DX: J10.1 Influenza due to other identified influenza virus with other respiratory manifestations (principal); Z20.822 Contact with and (suspected) exposure to COVID-19
CPT/HCPCS: 0240U; 87070; 87081; 99283

== ENCOUNTER 2022-03-11 08:19 | Emergency (ER) | payer BC, SELFPAY ==
--- OUTSIDE RECORDS SUMMARY | 2022-03-11 08:24 | XMS REPORT | Continuity of Care Document ---
:1995 Author Organization [facility] t Address [address] [place] [address] Care Team Providers Name Role Phone PCP, PATIENT DOES NOT HAVE A Primary Care Physician Unavaila ble GABBI YUAN Attending Clinician Unavailable GABBI YUAN Attending Clinician Unavailable Shyann Pichardo Attending Clinician Unavailable WALESKA MCELROY Attending Clinician Unavailable Doctor Unassigned, [place] Attending Clinician Unavailable Jessika Barone Attending Clinician Unavailable Waleska Rivas Attending Clinician Ellen Rothman Attending Clinician Ellen POPE Attending Clinician Unavailable Trisha Henderson Attending Clinician Unavailable Physician, No Primary or Family Admitting Clinician Unavaila andrew Payers Payer Name Policy Type Policy Number Effective Date Expiration Date S ource Problems Condition Condition Condition Status Onset Resolution Last Treating Co mments Source Name Details Category Date Date Treatment Clinician Date Menstrual Menstrual Disease Active Uni vers problem problem 03-26 ity of 00:00: [place] [address] [facility] [place] BMI BMI Disease Active Univers 34.0-34.9, 34.0-34.9, 03-26 it y of adult adult 00:00: [place] [address] [facility] [place] Allergies, Adverse Reactions, Alerts Allergy Allergy Status Severity Reaction(s) Onset Inactive Treating Comm ents Source Name Type Date Date Clinician No Known DA Active U [facility] All[facility]ie 3-27 Corpus s 00:00: Regina 00 [facility] No Known DA Active U [facility] Allergie 2-13 Corpus s 00:00: Regina [facility] No Known DA Active U 2012-07 [facility] Allergie 0-10 Corpus s 00:00: Regina [facility] NO KNOWN Drug Active Univers ALLERGIE Class ity of S [facility] Social History Social Habit Start Date Stop Date Quantity Comments Source Exposure to Not sure [facility] SARS-CoV-2 [facility]event[facility] History SDOH University o f Alcohol Frequency [facility] History SDOH University o f Alcohol Std [facility] Drinks [facility] History SDOH University o f Alcohol Binge [facility] Tobacco use and 2021-03-26 2021-03-26 Never used Universit y of exposure 00:00:00 00:00:00 [facility] Alcohol intake 2021-03-26 2021-03-26 Current drinker Unive rsity of 00:00:00 00:00:00 of alcohol [facility]finding[facility] Alcohol Comment 2021-03-26 2021-03-26 social Universit y of 00:00:00 00:00:00 [facility] Sex Ass[birth year] Universit y of 00:00:00 00:00:00 [facility] Smoking Status Start Date Stop Date Source Unknown if ever smoked Universit y of [facility] Never smoker [facility] Medications Ordered Filled Start Stop Current Ordering Indication Dosage Frequency Signature Comments Components Source Medication Medication Date Date Medication? Clinician (SIG) Name Name BIOTIN ORAL Yes Take by Uni vers 03-26 mouth. ity of 13:40: [address] BIOTIN ORAL Yes Take by Uni vers 03-26 mouth. ity of 13:40: [address] BIOTIN ORAL Yes Take by Uni vers 9-02 mouth. ity of 13:40: [address] BIOTIN ORAL 0 Yes Take by Uni vers 9-02 mouth. ity of 13:40: [address] BIOTIN ORAL 0 Yes Take by Uni vers 9-02 mouth. ity of 08:40: [address] Immunizations Ordered Filled Immunization Date Status Comments [facility] e Immunization Name Name SARS-COV-2 COVID-19 2020-12-17 Completed Unive rsity of MODERNA VACCINE 00:00:[address] [facility] Branch SARS-COV-2 COVID-19 2020-12-17 Completed Unive rsity of MODERNA VACCINE 00:00:00 [facility] SARS-COV-2 COVID-19 2020-12-17 Completed Unive rsity of MODERNA VACCINE 00:00:00 [facility] SARS-COV-2 COVID-19 2020-12-17 Completed Unive rsity of MODERNA VACCINE 00:00:00 [facility] SARS-COV-2 COVID-19 2020-12-17 Completed Unive rsity of MODERNA VACCINE 00:00:00 [facility] SARS-COV-2 COVID-19 2020-11-19 Completed Unive rsity of MODERNA VACCINE 00:00:00 [facility] SARS-COV-2 COVID-19 2020-11-19 Completed Unive rsity of MODERNA VACCINE 00:00:00 [facility] SARS-COV-2 COVID-19 2020-11-19 Completed Unive rsity of MODERNA VACCINE 00:00:00 [facility] SARS-COV-2 COVID-19 2020-11-19 Completed Unive rsity of MODERNA VACCINE 00:00:00 [facility] SARS-COV-2 COVID-19 2020-11-19 Completed Unive rsity of MODERNA VACCINE 00:00:00 [facility] Vital Signs Vital Name Observation Time Observation Value Comments Source Systolic blood 2021-03-26 13:33:00 116 mm[Hg] Univer sity of pressure [facility] Diastolic blood 2021-03-26 13:33:00 83 mm[Hg] Unive rsity of pressure [facility] Heart rate 2021-03-26 13:33:00 75 /min Universi ty [facility] Body temperature 2021-03-26 13:33:00 36.33 Nidia [facility] Respiratory rate 2021-03-26 13:33:00 18 /min [facility] Body height 2021-03-26 13:33:00 160 cm Universi ty [facility] Body weight 2021-03-26 13:33:00 89.132 kg Universi ty [facility] BMI 2021-03-26 13:33:00 34.81 kg/m2 Universi [facility] Systolic blood 2021-02-26 06:00:00 116 mm[facility]Hg[facility] Diastolic blood 2021-02-26 06:00:00 80 mm[Hg] Unive [facility] Heart rate 2021-02-26 06:00:00 78 /min Universi [facility] Respiratory rate 2021-02-26 06:00:00 19 /min [facility] Oxygen saturation in 2021-02-26 06:00:00 99 /min [facility] Arterial blood by [facility] Pulse oximetry [place] Body temperature 2021-02-26 04:36:00 36.78 Nidia [facility] Body height 2021-02-26 04:36:00 160 cm Universi [facility] Body weight 2021-02-26 04:36:00 81.647 kg [facility] BMI 2021-02-26 04:36:00 31.89 kg/m2 [facility] Procedures Procedure Date / Time Performed Performing Clinician Sour e EXTERNAL PROVIDER 2021-04-20 05:01:00 Doctor Unassigned, No Univ [facility] RECORDS Name Medical Branch MAGNESIUM 2021-02-26 04:40:00 Ellen Pope [facility] COMP. METABOLIC PANEL 2021-02-26 04:40:00 Ellen Pope [facility] ([id number]) [facility] CBC WITH DIFF 2021-02-26 04:40:00 Ellen Pope [place] [facility] f [facility] URINALYSIS 2021-02-26 04:40:00 Ellen Pope [place] [facility] POCT TEST 2021-02-26 04:39:00 Ellen Pope [facility] CONSENT/REFUSAL FOR 2021-02-26 04:18:31 [facility], [facility] AND Name Medical Branch TREATMENT NOTICE OF PRIVACY 2021-02-26 04:17:53 Doctor Unassigned, No [facility] PR[facility]ICES Name Medical Branch Encounters Start End Encounter Admission Attending Care Care Encounter Source Date/Time Date/Time Type Type Clinicians Facility Department ID 2021-04-13 Inpatient [facility] ER [id number] [facility] 08:30:00 [id number] [facility] 2020-10-18 Inpatient [facility] ER [id number] [facility] 16:34:00 [id number] [facility] 2020-09-06 Inpatient [facility] ER [id number] [facility] 09:41:00 [id number] [facility] 2020-06-06 Inpatient [facility] ER [id number] [facility] 09:17:00 [id number] [facility] 2020-04-01 Inpatient [facility] ER [id number] [facility] 18:30:00 [id number] [facility] 2020-01-25 [facility] [id number] 10:11:00 [id number] [facility] 2019-12-13 Inpatient [facility] ER [id number] [facility] 11:49:00 [id number] [facility] 2022-02-23 2022-02-23 Outpatient R GABBI YUAN [facility] B [id number] Univers 09:00:00 09:00:00 GABBI YUAN [id number] [facility] 2022-02-23 2022-02-23 Outpatient R GABBI YUAN [facility] B [id number] Univers 09:00:00 09:00:[address] [facility] 2021-06-01 2021-06-01 Emergency EM [place], [facility] ER [id number] [facility] 04:19:00 07:25:00 Shyann [id number] [facility] 2021-06-01 2021-06-01 Emergency EM Marino [facility] [id number] [facility] 04:19:00 07:25:00 Shyann [facility]onel [facility] 2021-05-26 2021-05-26 Outpatient Ibis [facility] [id number] Univers 13:30:00 13:30:00 WALESKA [id number] itsun [facility] 2021-05-26 2021-05-26 Outpatient Ibis [facility] [id number] Univers 13:30:00 13:30:00 WALESKA ity [facility] 2021-04-20 2021-04-20 Orders Doctor JAMIE [id number] Univers 00:00:00 00:00:00 Only Unassigned, MANDA [id number] ity of [place] [facility] [id number] Sher as [id number] [facility] [address] [place] 2021-04-13 2021-04-13 Emergency EM Lizabeth [facility] ER [id number] [facility] 08:30:00 11:03:00 , Jessika 06 [facility] 2021-03-26 2021-03-26 [facility] [id number] Univers 08:07:37 09:06:11 Visit Waleska 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 [id number] it y of [facility] [id number] Sher as MATERNAL [id number] Med ical & CHILD [address] [place] [address] 2021-03-26 2021-03-26 Outpatient Ibis [facility] [id number] Univers 08:00:00 08:00:00 WALESKA gonzalez [facility] 2021-02-25 2021-02-26 Emergency Ellen [facility] [id number] Univers 23:32:00 01:16:00 Lavonne [place] [id number] i ty [facility] [id number] [place] [id number] [facility] 084 Branch 2021-02-25 2021-02-25 Emergency X Ellen [facility] E[facility] [id number] Univers 23:32:00 23:32:00 ity of [facility] 2021-02-03 2021-02-03 Emergency EM Santiago, [facility] ER [id number] [facility] 12:47:00 15:19:00 Rishiariella [id number] [facility] Results Test Description Test Time Test Comments Results Result Comments Source LIPID PANEL 2022-03-07 23:34:08 Test Item Value Reference Range Interpretation Comme nts CHOLESTEROL (test code = 2210) 166 MG/DL <200 TRIGLYCERIDES (test code = 2232) 113 MG/DL <150 HDL CHOLESTEROL (test code = 36 MG/DL >39 L 2219) CALC LDL CHOL (test code = 2237) 108 MG/DL <100 H NOTE: CALCULATED LDL IS BASED ON JAMES-CRAWFORD METHOD WHICHINCLUDES A DJUSTABLE TRIGLYCERIDE:VL DL CHOLESTEROL RATIO.THIS FACT OR VARIES BY MEASURED TRIGLY CERIDE AND NON-HDLCHOLESTE ROL CONCENTRATIONS WITH INCREASED CALCULATED LDL SEENIN HIGHER T RIGLYCERIDE OR LOWER NON-HDL S PECIMENS. FOR MOREINFORMATION , SEE CLIENT ANNOUNCEMENT AT [email or web address] RATIO LDL/HDL (test code = 3.00 RATIO <3.22 2237) COMPREHENSIVE METABOLIC [id number] 23:34:08 Test Item Value Reference Range Interpretation Comments GLUCOSE (test code = 95 MG/DL 70-99 2216) BUN (test code = 14 MG/DL 6-20 2207) CREATININE (test 0.69 MG/DL 0.60-1.30 code = 2214) eGFR (2020 CKD-EPI) 123 >60 (test code = 38776) ML/MIN/1.73 CALC BUN/CREAT (test 20 RATIO 6-28 code = 2235) SODIUM (test code = 140 MEQ/L 761-057 2240) POTASSIUM (test code 4.3 MEQ/L 3.5-5.4 = 8) CHLORIDE (test code 105 MEQ/L 95-107 = 221) CARBON DIOXIDE (test 22 MEQ/L 19-31 code = 2206) CALCIUM (test code = 9.7 MG/DL 8.5-10.5 2208) PROTEIN, TOTAL (test 7.1 G/DL 6.1-8.3 code = 2229) ALBUMIN (test code = 4.3 G/DL 3.5-5.2 2200) CALC GLOBULIN (test 2.8 G/DL 1.9-3.7 code = 2240) CALC A/G RATIO (test 1.5 RATIO 1.0-2.6 code = 2234) BILIRUBIN, TOTAL 0.3 MG/DL See_Comment [Automated message] (test code = 2207) The syste m which generated this result transmit umang reference range : <=1.2. The refe rence range was not u sed to interpret th is result as normal/abnormal . ALKALINE PHOSPHATASE 99 U/L 40-112 (test code = 2203) AST (test code = 61 U/L 9-40 H 2217) ALT (test code = 112 U/L 5-40 H 2218) HEMOGLOBIN [id number] 02:44:32 Test Item Value Reference Range Interpretation Comments HEMOGLOBIN A1c (test 5.9 % 4.2-5.6 H UNLESS OTHERWISE code = 78571) INDICATED, ALL TESTING PERFORMED [facility]. [address] [place] [address] DIRECTOR: KELLEY TESFAYE M.D. CLIA NUMBER [id number] CAP ACCREDITATION N O. [id number] CBC W/AUTO DIFF WITH [id number] 02:12:51 Test Item Value Reference Range Interpretation Comments WBC (test code = 8.6 K/UL 3.5-11.0 1001) RBC (test code = 5.04 M/UL 3.80-5.40 1002) HEMOGLOBIN (test code 11.1 G/DL 11.5-15.5 L = 1003) HEMATOCRIT (test code 36.4 % 34.0-45.0 = 1004) MCV (test code = 72.2 fL 80.0-99.0 L 1005) MCH (test code = 22.0 PG 25.0-33.0 L 1006) MCHC (test code = 30.5 G/DL 31.0-36.0 L 1007) RDW (test code = 16.7 % 11.5-15.0 H 1038) NEUTROPHILS (test 57.1 % code = 1008) LYMPHOCYTES (test 35.4 % code = 1010) MONOCYTES (test code 5.8 % = 1011) EOSINOPHILS (test 0.9 % code = 1012) BASOPHILS (test code 0.2 % = 1013) IMMATURE GRANULOCYTES 0.6 % (test code = 1036) NUCLEATED RBCS (test 0.0 /100 WBC'S See_Comment [Aut omated code = 1065) message] The sy stem which generated this result transmitted reference range : 0.0. The refere nce range was not u sed to interpret th is result as normal/abnormal . PLATELET COUNT (test 373 K/UL 130-400 code = 1015) ABSOLUTE NEUTROPHILS 4.91 K/UL 1.50-7.50 (test code = 1066) ABSOLUTE LYMPHOCYTES 3.05 K/UL 1.00-4.00 (test code = 1067) ABSOLUTE MONOCYTES 0.50 K/UL 0.20-1.00 (test code = 1068) ABSOLUTE EOSINOPHILS 0.08 K/UL 0.00-0.50 (test code = 1040) ABSOLUTE BASOPHILS 0.02 K/UL 0.00-0.20 (test code = 1069) ABS IMMATURE 0.05 K/UL 0.00-0.10 GRANULOCYTES (test code = 1020) ABS NUCLEATED RBCS 0.00 K/UL 0.00-0.11 (test code = 47821) COVID 19 INHOUSE [id number] 06:18:00 Test Item Value Reference Range Interpretation Comments COVID 19 NEGATIVE Negative " The Kay OLIVIER S Antigen TACO does INHOUSE AG not differentia te betweenSARS-CoV (test code = and SARS-CoV-2 " The Kay SARS [id number]) Antigen TACO emp loys immunofluoresce ncetechnology in a sandwich design that is used with Kay todetect nucleocapsid protein from SA RS-CoV and SARS-CoV-2.This test allows for the detection o f SARS-CoV ciaMAIS-EiU-0. The test detects, but does not differentiate,b etween the two viruses. " Resu lts are for the identification of KIUL-FlN-1zcfvj ocapsid protein antigen. Antige n is generallydetect able in upper respiratory spe cimens during the acutephase of i nfection. Positive results indicat e the presenceof viral antigens, but clinical correlation wit h patienthistory and other diagn ostic information is necessary to determine infection statu s. Positive results do not rule outbacterial infection or co -infection with other viruses. Theagent detected may not be the definite cause of disease. " Nega tive results should be treat ed as presumptive " This test has not been FDA cleared or appr aj; the testhas been authorized by FDA under an Emergency UseAu thorization (EUA) for use by labo ratories certified underthe CLIA t hat meet the requirements to perform moderate,high o r waived complexity test s. This test is authorized foru se at the Point of Care (POC), i.e ., in patient caresettings op erating under a CLIA Certificat e of Waiver,Certific ate of Compliance, or Certificate of Accreditation Use BIN[employer] NOW test: YES- US TRANSVAGINAL NON [id number] 09:44:00 [facility] : 1995 Sex: F Patient Name: LUCIAN FATIMA Unit No: [id number] EXAMS: CPT CODE: [id number] [place] [address] Site ID: [id number] Transvaginal and transabdominal pelvic US: CLINICAL HISTORY: Vaginal bleeding, left lower quadrant pain TECHNIQUE: Transabdominal and transvaginal pelvic ultrasound performed, with duplex scanning performed using B mode/grayscale imaging and spectral Doppler evaluati on of arterial inflow and venous outflow to the ovaries FINDINGS: The uterus is normal in size and appearance and measures 7.3 x 3.7 x 4.4 cm. The endometrial stripe measures 14 mm. Myometrium appears homogeneous. The right ovary measures 2.5 x 2.2 cm. The left ovary measures 2.1 x 1.9 cm. Normal doppler flow to both ovaries is seen, without torsion. No abnormal adnexal masses are seen. No free fluidis seen. IMPRESSION: Unremarkable pelvic ultrasound at 0944 Reported and signed by: Van Freeman MD CC: Jessika Barone MD Technologist: [id number]; Dean Patel US Trnscrbd D/ (0944) [id number] Orig Print D/T: S: 2020 (1001) Probe: [id number] [facility] Doctors NAME: LUCIAN FATIMA PADMINI [address] PHYS: SU.[employer] - Jessika Barone [facility] [place] [address] : 1995 AGE: 25 SEX: F LOC: MAIRA PHONE #: [phone] EXAM DATE: 04/13/2021 STATUS: REG ER FAX #: RAD NO: Page 1 Signed Report- US PELVIC [id number] 09:44:00 [facility] PADMINI : 1995 Sex: F Patient Name: LUCIAN FATIMA RAQUEL Unit No: [id number] EXAMS: CPT CODE: [id number] US PELVIC COMPLETE 03749 Site ID: [id number] Transvaginal and transabdominal pelvic US: CLINICAL HISTORY: Vaginal bleeding, left lower quadrant pain TECHNIQUE: Transabdominal and transvaginal pelvic ultrasound performed, with duplex scanning performed using B mode/grayscale imaging and spectral Doppler evaluation ofarterial inflow and venous outflow to the ovaries FINDINGS: The uterus is normal in size and appearance and measures 7.3 x 3.7 x [...] Freeman MD CC: Jessika Barone MD Technologist: Dean DONALDSON Trnscrbd D/ (0944) [id number] Orig Print D/T: S: 04/13/2021 (1001) Probe:[facility] Doctors NAME: LUCIAN FATIMA [address] [facility] PHYS: [employer] [place] [address] : 1995 AGE: 25 SEX: F LOC: MAIRA PHONE #: [phone] EXAM DATE: 04/13/2021 STATUS: REG ER FAX #: RAD NO: Page 1 Signed ReportHCG SERUM [id number] 09:21:00 Test Item Value Reference Range Interpretation [...] using aquantitative h CG assay. COMPREHENSIVE METABOLIC [id number] 09:19:00 Test Item Value Reference Range Interpretation [...] TOTAL (test code = ALKP) CBC W/AUTO [id number] 09:07:00 Test Item Value Reference Range Interpretation [...] = 0.0 X10 3/uL 0.0-0.2 N NRBC#) [id number] 05:23:10 Test Item Value Reference Range Interpretation Comments APPEARANCE (test code = Hazy Clear A 1110541212) COLOR (test code = Yellow Yellow 3349598581) PH (test code = 4.8-8.0 8863439758) SP GRAVITY (test code = 1.003-1.030 4440822255) GLU U QUAL (test code = Normal Normal 7584538302) BLOOD (test code = 2+ Negative A 3245183180) KETONES (test code = Negative Negative 2958672571) PROTEIN (test code = Negative Negative 2887-8) UROBILIN (test code = Normal Normal 4767830823) BILIRUBIN (test code = Negative Negative 5254282505) NITRITE (test code = Negative Negative 7058780858) LEUK JENNIFER (test code = Negative Negative 4534743408) RBC/HPF (test code = >182 See_Comment H [Autom ated message] 1864167335) The system [employer] generated this result transmitted ref erence range: 0 - 3 HP F. The reference range was not used to int erpret this result as normal/abnormal . WBC/HPF (test code = See_Comment [Autom ated message] 4982117389) The system [employer] generated this result transmitted ref erence range: 0 - 5 HP F. The reference range was not used to int erpret this result as normal/abnormal . BACTERIA (test code = Few Negative A 5403828121) MUCOUS (test code = Slight Negative LPF A 5084090990) AMORPHOUS (test code = Rare Rare HPF 5175431015) SQ EPITH (test code = HPF 5814232397) TRANS EPI (test code = <1 See_Comment [Aut omated message] 8154424429) The system [employer] generated this result transmitted ref erence range: <=1 HPF. The reference range was not used to int erpret this result as normal/abnormal . Lab Interpretation (test Abnormal code = 17795-5) [facility] WITH [id number] 05:18:05 Test Item Value Reference Range Interpretation Comments WBC (test code = See_Comment [Automated 8890-2) message] The sy stem which generated this result transmitted reference range : 4.30 - 11.10 10*3/?L. The reference range was not used to interpret this result as normal/abnormal . RBC (test code = See_Comment [Automated 829-8) message] The sy stem which generated this [...] (test code = 36.6 fL 39.0-49.9 L 90341-6) RDW-CV (test code = 12.3 % 12.0-15.5 788-0) PLT (test code = See_Comment [Automated 777-3) message] The sy stem which generated this result transmitted reference range : 166 - 358 10*3/ ?L. The reference r jenise was not used to interpret this result as normal/abnormal . MPV (test code = 11.0 fL 9.5-12.9 22528-9) NRBC/100 WBC (test See_Comment [Automat ed code = 8871409326) message] The system which generated this result transmitted reference range : 0.0 - 10.0 /100 WBCs. The refer ence range was not u sed to interpret th is result as normal/abnormal . NRBC x10^3 (test code <0.01 See_Comment [Auto mated = 1507087800) message] The s ystem which generated this result transmitted reference range : 10*3/?L. The reference range was not used to interpret this result as normal/abnormal . GRAN MAT (NEUT) % 58.5 % (test code = 770-8) IMM GRAN % (test code 0.70 % = 8006382332) LYMPH % (test code = 32.2 % 736-9) MONO % (test code = 6.7 % 5905-5) EOS % (test code = 1.5 % 713-8) BASO % (test code = 0.4 % 706-2) GRAN MAT x10^3(ANC) 6.06 10*3/uL 1.88-7.09 (test code = 4563559165) IMM GRAN x10^3 (test 0.07 10*3/uL 0.00-0.06 H code = 7467180420) LYMPH x10^3 (test code 3.33 10*3/uL 1.32-3.29 H = 731-0) MONO x10^3 (test code 0.69 10*3/uL 0.33-0.92 = 742-7) EOS x10^3 (test code = 0.16 10*3/uL 0.03-0.39 711-2) BASO x10^3 (test code 0.04 10*3/uL 0.01-0.07 = 704-7) Lab Interpretation Abnormal (test code = 15518-7) [facility]. METABOLIC PANEL ([id number])2021-02-26 05:12:37 Test Item Value Reference Range Interpretation Comments NA (test code = 140 mmol/L 135-145 9127029691) K (test code = 4.0 mmol/L 3.5-5.0 1499449689) CL (test code = 106 mmol/L 98-108 1074701303) CO2 TOTAL (test code = 28 mmol/L 23-31 0997325919) AGAP (test code = 2-16 7012334190) BUN (test code = 15 mg/dL 7-23 7686163266) GLUCOSE (test code = 89 mg/dL 70-110 3119826940) CREATININE (test code = 0.60 mg/dL 0.50-1.04 0385494862) TOTAL BILI (test code = 0.3 mg/dL 0.1-1.7 9649319796) CALCIUM (test code = 9.4 mg/dL 8.6-10.6 6184388528) T PROTEIN (test code = 7.5 g/dL 6.3-8.2 5733523436) ALBUMIN (test code = 4.4 g/dL 3.5-5.0 5732915743) ALK PHOS (test code = 105 U/L 34-122 4165837734) ALTv (test code = 65 U/L 5-35 H 1742-6) AST(SGOT) (test code = 44 U/L 13-40 H 6143903813) eGFR (test code = mL/min/1.73m2 1951418758) ANTON (test code = ANTON) Association of [...] tests). Lab Interpretation Abnormal (test code = 70981-8) [facility] 05:12:37 Test Item Value Reference Range Interpretation Comments MAGNESIUM (test code = 2720893342) 1.9 mg/dL 1.7-2.4 Lab Interpretation (test code = Normal 18803-1) [facility] [id number] 04:39:00 Test Item Value Reference Range Interpretation Comments POCT PREG (test code = 1605) negative On board controls acceptable with present C Line (test code = 3574) POCT PREG LOT # (test code = 3575) [id number] POCT PREG TEST DATE (test 07/24/2022 code = 3576) Lab Interpretation (test code = Normal 70720-2) [facility] [id number] 14:36:00 Test Item Value Reference Range Interpretation [...] 8.8 MG/DL 8.7-10.5 N CA) HEPATIC FUNCTION [id number] 14:36:00 Test Item Value Reference Range Interpretation [...] 50-136 N TOTAL (test code = ALKP) [id number] 14:36:00 Test Item Value Reference Range Interpretation Comments LIPASE (test code = LIP) 81 Units/L 73-393 N Coronavirus 2019 nCoV [id number] 14:29:00 Test Item Value Reference Range Interpretation Comments Coronavirus 2019 nCoV Negative Negative ID NOW COVID-19 assay Bedside (test code = perform ed on the ID NOW [id number]) Instrument ni rapid molecular in vi tro diagnostic test utilizing aniso thermal nucleic acid amplification t echnology intendedfor the qualitative det ection of nucleic acid fr om [id number] v iral RNA in direct nasal , nasopharyngeal orthroat swabs and nasal , nasopharyngeal or throat swabseluted in viral transport media from individuals who aresuspected of COVID-19 by their health care provider. Resul ts are for the identif ication of SARS-CoV-2 R NA.For Use Under an Em ergency Use Authorizati on (EUA) Only Negative r esults do not preclude SA RS-CoV-2 infection andsh ould not be used as the sole basis for patie nt managementdecis ions. Negative result s must be combined with clinicalobserva tions, patient history , and epidemiological informati on. UA RFLX MICROSCOPIC [id number] 14:22:00 Test Item Value Reference Range Interpretation [...] Flank PainURINE SOURCE: Clean CatchUA RFLX MICROSCOPIC [id number] 14:15:00 Test Item Value Reference Range Interpretation [...] Flank PainURINE SOURCE: Clean CatchUA RFLX MICROSCOPIC [id number] 14:15:00 Test Item Value Reference Range Interpretation [...] X10 3/uL 0.0-0.2 N NRBC#) UR HCG [id number] 14:11:00 Test Item Value Reference Range Interpretation [...] aquantitative h CG assay. Covid 19 InHouse [id number] 10:40:00 Test Item Value Reference Range Interpretation Comments Covid 19 Negative Negative A negative resu lt does not InHouse NTX preclude the SA RS-COV-2 (test code = viralinfection and should not be [id number]) used as the so le basis forpatient [...] performancechar acteristics were determined by Janae larson [facility]. Thi s test has notbeen FDA walter ared or approved. This test is au thorized by theFDA under Em ergency Use Authorization(E UA). The EUA willremain in e ffect unless it is terminated o r revoked by FDA . Testing su eters have not been validated for screeningasympt omatic patients. This test was v alidated according to th e FDA's guidancedocumen t "Policy for Diagnostics janeth ting in LaboratoriesCer tified to Perform High Complexity Testing under CLIA". First test? NoEmployed in Healthcare? YesSymptomatic as defined by CDC? YesDate of Symptom Onset: [id number] due to COVID? NoIn ICU due to COVID? NoResident in a congregate care setting? No? NoAge at collection: YCBC W/AUTO [id number] 11:35:00 Test Item Value Reference Range Interpretation [...] X10 3/uL 0.0-0.2 N NRBC#) COMPREHENSIVE METABOLIC [id number] 11:30:00 Test Item Value Reference Range Interpretation [...] TOTAL (test code = ALKP) HCG SERUM [id number] 11:27:00 Test Item Value Reference Range Interpretation [...] using aquantitative h CG assay. UA RFLX [id number] 11:19:00 Test Item Value Reference Range Interpretation [...] Clean Catch (test code = UASPEC) UA [id number] 11:19:00 Test Item Value Reference Range Interpretation Comments UA WBC (test code = WBCU) < 10 #/HPF 0-10 UA RBC (test code = RBCU) 0-2 #/HPF NONE SEEN UA SQUAMOUS CELLS (test code > 100 #/LPF <100 A = SQU) UA MUCUS (test code = MUCU) RARE #/lpf NONE SEEN UA CULTURE NEEDED? (test Criteria not met code = UACULT) UA RFLX [id number] 11:17:00 Test Item Value Reference Range Interpretation [...] Clean Catch (test code = UASPEC) UA [id number] 11:17:00 Test Item Value Reference Range Interpretation Comments UA WBC (test code = WBCU) #/hpf <10 UA RBC (test code = RBCU) #/hpf NONE SEEN UA SQUAMOUS CELLS (test code = SQU) #/lpf <100 UA CULTURE NEEDED? (test code = UACULT) UA RFLX [id number] 11:17:00 Test Item Value Reference Range Interpretation [...] Clean Catch (test code = UASPEC) UA [id number] 11:17:00 Test Item Value Reference Range Interpretation Comments UA WBC (test code = WBCU) #/hpf <10 UA RBC (test code = RBCU) #/hpf NONE SEEN UA SQUAMOUS CELLS (test code = SQU) #/lpf <100 UA CULTURE NEEDED? (test code = UACULT) - XR ABDOMEN 1 [id number] 11:04:00 [facility] 1995 Sex: F Patient Name: LUCIAN FATIMA Unit No: [id number] EXAMS: CPT CODE: [id number] XR ABDOMEN 1 V 14226 Reason: LLQ PAIN - XR ABDOMEN 1 V 06/06/2020 10:06 AM Left lower quadrant abdominal painA supine abdomen shows no abnormal masses or suspicious calcifications. The regional bowel gas pattern is normal. Soft tissue shadows are unremarkable. The bones are unremarkable. IMPRESSION: Negative a bdomen. at 1104 Reported and signed by: Kelley Caruso MD CC: Joshua James DO; Jan Saxena NP Technologist: Bren Singh (Schroeder) RT Trscrpt Dt/ (1104)t.MK41 Orig Print D/T: S: 06/06/2020 (6107) [facility] NAME: LUCIAN FATIMA [address] PHYS: [place] [address] : 1995 AGE: 24 SEX: F LOC: MAIRA PHONE #: [phone] EXAM DATE: 06/06/2020 STATUS: REG ER FAX #: RAD NO: DC Dt: PAGE 1 Signed ReportNovel Coronavirus 2019 nCoV 2020-04-03 00:35:00 Test Item Value Reference Range Interpretation Comments Novel Coronavirus Negative Negative Altru Dx COVID-19 test 2019 nCoV (test code is a qu alitative test = COVID19) and does notpro vide quantitative va lue of the organism Re sults from this test must be correlated with theclinical his tory, epidemiological data and other dataavail able to the clinician e valuation the patient Int erference from substances that were not evalua umang pope to er roneous results A negat heidi result does not exclude the possibility ofCOVID-19 infe ction. False negative test results may occ urdue to the presence of inhibitors. Janeth t results may also beaffe cted by levels of organ ism in the specimen th at arebelow thresh old detection for t he test. Negative result sshould not be used as a sole basis for diagn osis, treatment,or ot her patient managem ent decisions. UA RFLX [id number] 12:38:00 Test Item Value Reference Range Interpretation [...] Catch (test code = UASPEC) COMPREHENSIVE METABOLIC [id number] 12:34:00 Test Item Value Reference Range Interpretation [...] 50-136 N TOTAL (test code = ALKP) [id number] 12:34:00 Test Item Value Reference Range Interpretation Comments LIPASE (test code = LIP) 65 Units/L 73-393 L HCG SERUM [id number] 12:29:00 Test Item Value Reference Range Interpretation [...] using aquantitative h CG assay. CBC W/AUTO [id number] 12:23:00 Test Item Value Reference Range Interpretation [...] X10 3/uL 0.0-0.2 N NRBC#) UA RFLX [id number] 00:42:00 Test Item Value Reference Range Interpretation [...] Catch (test code = UASPEC) UR HCG [id number] 00:27:00 Test Item Value Reference Range Interpretation [...]
[2022-03-11 09:03] LABS: Absolute Lymphocytes (CBC) 2.5 K/uL (0.7-4.9); Hematocrit 38.6 % (36.0-45.0); Lymphocytes % 29.1 % (15.3-44.8); MCV 71.3 fL (80-100); MPV 8.7 fL (7.6-11.3); RBC Red Blood Cell Count 5.41 M/uL (3.86-4.86)
[2022-03-11 09:09] LABS: Urine Bacteria >50 /HPF (<20); Urine RBC <5 /HPF (None Seen)
[2022-03-11 09:23] LABS: Albumin 3.7 g/dL (3.4-5.0); Bilirubin Total 0.3 mg/dL (0.2-1.0); Potassium 4.1 mmol/L (3.5-5.1); Protein, Total 7.7 g/dL (6.4-8.2)
[2022-03-11] MEDS ORDERED: ONDANSETRON 4 MG/2 ML VIAL ONE (09:24)
[2022-03-11] MEDS ORDERED: KETOROLAC 30 MG/ML INJ ONE (09:24)
[2022-03-11] MEDS ORDERED: NA CHLORIDE 0.9% 1,000 ML ONE (09:25)
[2022-03-11 09:36] LABS: Urine Blood Negative (Negative); Urine Glucose Negative (Negative); Urine Protein Negative (Negative); Urine Specific Gravity 1.025 (1.005-1.030)
--- NOTE | 2022-03-11 10:38 | EDPHYS ---
Physician Documentation [facility] Name: Leyla Vivas Age: 26 yrs Sex: Female : 1995 Arrival Date: 03/11/2022 Time: 08:22 Bed 11 Private MD: ASAF Physician Selwyn Gonzalez HPI: 03/11 08:35 This 26 yrs old Female presents to ER via Ambulatory with complaints of jh7 Abdominal Pain, Body Aches, Headache. 08:35 The patient presents with abdominal pain that is diffuse. Onset: The symptoms/episode jh7 began/occurred 1 week(s) ago. The symptoms do not radiate. Associated signs and symptoms: Pertinent positives: headache, Body aches . Patient presents with headache, nausea vomiting, abdominal pain, and body aches for 1 week. Reports that she has a history of a cyst on her kidney.. Historical: - Allergies: 08:34 No Known Allergies; ss - PSHx: 08:34 Tonsillectomy; ss - Immunization history:: Client reports receiving the 2nd dose of the Covid vaccine. - Social history:: Smoking status: Patient denies any tobacco usage or history of. ROS: 08:35 Eyes: Negative for injury, pain, redness, and discharge, ENT: Negative for injury, jh7 pain, and discharge, Cardiovascular: Negative for chest pain, palpitations, and edema, Respiratory: Negative for shortness of breath, cough, wheezing, and pleuritic chest pain, Back: Negative for injury and pain, Skin: Negative for injury, rash, and discoloration, Neuro: Negative for headache, weakness, numbness, tingling, and seizure. 08:35 Constitutional: Positive for body aches, Negative for poor PO intake. 08:35 Abdomen/GI: Positive for abdominal pain, nausea and vomiting, Negative for diarrhea, constipation. 08:35 Neuro: Positive for headache, Negative for altered mental status, dizziness, syncope. 08:35 All other systems are negative. Exam: 08:35 Constitutional: This is a well developed, well nourished patient who is awake, alert, jh7 and in no acute distress. 08:35 Eyes: Pupils equal round and reactive to light, extra-ocular motions intact. Lids and lashes normal. Conjunctiva and sclera are non-icteric and not injected. Cornea within normal limits. Periorbital areas with no swelling, redness, or edema. ENT: Nares patent. No nasal discharge, no septal abnormalities noted. Oropharynx with no redness, swelling, or masses, exudates, or evidence of obstruction, uvula midline. Mucous membranes moist. Neck: Trachea midline, no thyromegaly or masses palpated, and no cervical lymphadenopathy. Supple, full range of motion without nuchal rigidity, or vertebral point tenderness. No Meningismus. Cardiovascular: Regular rate and rhythm with a normal S1 and S2. No gallops, murmurs, or rubs. Normal PMI, no JVD. No pulse deficits. Respiratory: Lungs have equal breath sounds bilaterally, clear to auscultation and percussion. No rales, rhonchi or wheezes noted. No increased work of breathing, no retractions or nasal flaring. Abdomen/GI: Soft, non-tender, with normal bowel sounds. No distension or tympany. No guarding or rebound. No evidence of tenderness throughout. Back: No spinal tenderness. No costovertebral tenderness. Full range of motion. Skin: Warm, dry with normal turgor. Normal color with no rashes, no lesions, and no evidence of cellulitis. Neuro: Awake and alert, GCS 15, oriented to person, place, time, and situation. Normal gait. Vital Signs: 08:32 BP 119 / 85; Pulse 77; Resp 16; Temp 98.1(TE); Pulse Ox 100% on R/A; Weight 88 kg; ss Height 5 ft. 3 in. (160.02 cm); Pain 8/10; 08:32 Body Mass Index 34.37 (88.00 kg, 160.02 cm) ss MDM: 08:35 Patient medically screened. [facility] 11:32 Differential diagnosis: non-specific abd pain, Pyelonephritis, urinary tract infection. [facility] Data reviewed: vital signs, nurses notes, lab test result(s). Data interpreted: Pulse oximetry: is 100 %. Counseling: I had a detailed discussion with the patient and/or guardian regarding: the historical points, exam findings, and any diagnostic results supporting the discharge/admit diagnosis, to return to the emergency department if symptoms worsen or persist or if there are any questions or concerns that arise at home. ED course: Reviewed all lab work with the patient. She stated that she is currently being treated for trichomonas as well. Advised her to take antibiotic for UTI separate from the Flagyl and to take both with food. If she develops any new concerning symptoms, she may return to the ER for further eval.. 03/11 08:43 Order name: CBC with Diff; Complete Time: 09:57 [facility] 03/11 08:43 Order name: CMP; Complete Time: 09:57 [facility] 03/11 08:43 Order name: Lipase; Complete Time: :57 [facility] 03/11 08:43 Order name: Urine Microscopic Only; Complete Time: 09:57 [facility] 03/11 08:43 Order name: Flu; Complete Time: 09:57 [facility] 03/11 08:43 Order name: SARS-COV-2 RT PCR (Document "Date of Onset" if Symptomatic); Complete Time: [facility] 10:36 03/11 08:43 Order name: IV Saline Lock; Complete Time: 09:14 [facility] 03/11 08:43 Order name: Labs collected and sent; Complete Time: 09:14 [facility] 03/11 09:12 Order name: Urine Culture [facility] 03/11 09:36 Order name: Urine Dipstick-Ancillary; Complete Time: :57 [facility] 03/11 08:43 Order name: Urine Dipstick-Ancillary (obtain specimen); Complete Time: 09:14 [facility] 03/11 08:43 Order name: Urine Test (obtain specimen); Complete Time: 09:14 [facility] Administered Medications: 09:20 Drug: Zofran (Ondansetron) 4 mg Route: IVP; Site: right antecubital; 11:18 Follow up: Response: No adverse reaction 09:22 Drug: Ketorolac 30 mg Route: IVP; Site: right antecubital; ss 11:18 Follow up: Response: No adverse reaction 09:23 Drug: NS 0.9% 1000 ml Route: IV; Rate: 1 bolus; Site: right antecubital; ss 11:18 Follow up: IV Status: Completed infusion ss 10:35 Drug: Rocephin (cefTRIAXone) 1 grams Route: IV; Rate: 1 calculated rate; Site: right ss antecubital; 11:05 Follow up: IV Status: Completed infusion; IV Intake: 50ml ss Disposition Summary: 03/11/22 10:38 Discharge Ordered Location: Home [facility] Problem: new [facility] Symptoms: have improved [facility] Condition: Stable [facility] Diagnosis - UTI/ Urinary tract infection, site not specified [facility] Followup: [facility] - With: Private Physician - When: 2 - 3 days - Reason: Recheck today's complaints Discharge Instructions: - Discharge Summary Sheet [facility] - Urinary Tract Infection, Adult [facility] Forms: - Medication Reconciliation Form [facility] - Thank You Letter [facility] - Work release form ss - Antibiotic Education [facility] Prescriptions: - Macrobid 100 mg Oral Capsule - take 1 capsule by ORAL route every 12 hours for 7 days; 14 capsule; Refills: 0, jh7 Product Selection Permitted Signatures: Dispatcher [employer] Vero Bell RN RN ss Shyann Funes, EDUCATIONAL DIRECTOR EDUCATIONAL DIRECTOR [facility]
--- NOTE | 2022-03-11 10:38 | ER ---
Nurse's Notes [facility] Name: Leyla Vivas Age: 26 yrs Sex: Female : 1995 Arrival Date: 03/11/2022 Time: 08:22 Bed 11 Private MD: Diagnosis: UTI/ Urinary tract infection, site not specified Presentation: 03/11 08:32 Chief complaint: Patient states: Headache x 1.5 weeks. Pt was tested for Flu, RSV and ss COVID 2 days ago which were negative and given a nasal spray to relieve headache, but it does not seem to be working. Denies fever. Coronavirus screen: Client denies travel out of the [place] in the last 14 days. Client presents with at least one sign or symptom that may indicate coronavirus-19. Ebola Screen: Patient denies exposure to infectious person. Patient denies travel to an Ebola-affected area in the 21 days before illness onset. Initial Sepsis Screen: Does the patient meet any 2 criteria? No. Patient's initial sepsis screen is negative. Does the patient have a suspected source of infection? No. Patient's initial sepsis screen is negative. Risk Assessment: Do you want to hurt yourself or someone else? Patient reports no desire to harm self or others. Onset of symptoms was February 28, 2022. 08:32 Method Of Arrival: Ambulatory ss 08:32 Acuity: BRAYAN 3 ss Historical: - Allergies: 08:34 No Known Allergies; ss - PSHx: 08:34 Tonsillectomy; ss - Immunization history:: Client reports receiving the 2nd dose of the Covid vaccine. - Social history:: Smoking status: Patient denies any tobacco usage or history of. Screenin:17 Abuse screen: Denies threats or abuse. Denies injuries from another. Nutritional ss screening: No deficits noted. Tuberculosis screening: Never had TB. Fall Risk None identified. Assessment: 10:38 Reassessment: awaiting for Rocephin to finish infusing. ss Vital Signs: 08:32 BP 119 / 85; Pulse 77; Resp 16; Temp 98.1(TE); Pulse Ox 100% on R/A; Weight 88 kg; ss Height 5 ft. 3 in. (160.02 cm); Pain 8/10; 08:32 Body Mass Index 34.37 (88.00 kg, 160.02 cm) ED Course: 08:22 Patient arrived in ED. rg4 08:22 [facility]yann Funes FNP [facility] 08:22 Selwyn Gonzalez MD is Attending Physician. [facility] 08:34 Triage completed. ss 08:34 Arm band placed on right wrist. ss 09:13 Vero Teresa RN is Primary Nurse. ss 10:30 Inserted saline lock: 22 gauge in right antecubital area, using aseptic technique. ss ,using aseptic technique. Insertion by Eri Sanchez NP. 11:16 No provider procedures requiring assistance completed. Patient did not have IV access ss during this emergency room visit. 11:17 Patient has correct armband on for positive identification. Bed in low position. Call ss light in reach. Administered Medications: 09:20 Drug: Zofran (Ondansetron) 4 mg Route: IVP; Site: right antecubital; ss 11:18 Follow up: Response: No adverse reaction 09:22 Drug: Ketorolac 30 mg Route: IVP; Site: right antecubital; ss 11:18 Follow up: Response: No adverse reaction 09:23 Drug: NS 0.9% 1000 ml Route: IV; Rate: 1 bolus; Site: right antecubital; ss 11:18 Follow up: IV Status: Completed infusion 10:35 Drug: Rocephin (cefTRIAXone) 1 grams Route: IV; Rate: 1 calculated rate; Site: right ss antecubital; 11:05 Follow up: IV Status: Completed infusion; IV Intake: 50ml ss Intake: 11:05 IV: 50ml; Total: 50ml. Outcome: 10:38 Discharge ordered by . [facility] 11:16 Discharged to home ambulatory. 11:16 Condition: good 11:16 Discharge instructions given to patient, Instructed on discharge instructions, follow up and referral plans. Demonstrated understanding of instructions, follow-up care. 11:18 Patient left the ED. Signatures: Vero Teresa RN RN Shante Olguin rg4 Shyann Funes FNP FNP Luis
[2022-03-11] MEDS ORDERED: CEFTRIAXONE 1000 MG/VIAL ONE (10:40)
[2022-03-11] MEDS ORDERED: NA CHLORIDE 0.9% 50 ML ONE (10:41)
[2022-03-11 11:51] VITALS: BP 119/85; TEMP 98.1; O2SAT 100
== END 2022-03-11 11:18 | disposition home or self-care (01) ==
LOC: ER 08:19
DX: N39.0 Urinary tract infection, site not specified (principal); Z20.822 Contact with and (suspected) exposure to COVID-19
CPT/HCPCS: 96365; 96361; 87088; 85025; 87086; 36415; 83690; 80053; 87804 ×2; 96375; 99283; U0003; J7030; J2405; 81003; 81015